=== PATIENT | female | born 1990 | race Caucasian/White ===

== ENCOUNTER 2017-05-03 19:46 | Observation (INO) ==
[2017-05-03 20:16] LABS: Basophils % 0.3 %; Eosinophils # 0.1 K/mcL (0.0-0.6); Eosinophils % 0.6 %; Hematocrit 36.6 % (35.3-44.9); Hemoglobin 12.2 g/dL (11.5-15.4); Immature Granulocytes % 0.2 % (0-4); Lymphocytes # 1.2 K/mcL (0.6-4.6); Lymphocytes % 12.8 %; Mean Corpuscular HGB Conc 33.3 g/dL (31.6-35.5); Mean Corpuscular Hemoglobin 30.6 pg (28.0-33.3); Mean Corpuscular Volume 91.7 fL (83.0-100.0); Mean Platelet Volume 9.3 fL (9.4-12.4); Monocytes # 0.9 K/mcL (0.0-1.3); Monocytes % 9.7 %; Neutrophils # 7.1 K/mcL (1.6-8.9); Platelet Count 231 K/mcL (140-400); Red Blood Count 3.99 M/mcL (3.82-4.97); Red Cell Distribution Width 12.3 % (11.5-14.5); Segmented Neutrophils % 76.4 %
--- NOTE | 2017-05-03 20:18 | Emergency Department Note ---
Disposition Clinical Impression: Suicidal ideation, Opioid withdrawal, Benzodiazepine abuse Disposition: Admitted As Inpatient Condition: Good General Adult HPI - General Chief complaint: ED Psychiatric Symptoms Stated complaint: si Time Seen by Provider: 05/03/17 20:02 Source: patient Limitations: no limitations Nursing Notes Reviewed: Yes Vital Signs Reviewed: Yes - History of Present Illness HPI Narrative: 18-year-old female who does emergency department after stating that she wants to kill herself. Patient's had A History of Depression, Suicidal Ideations. Patient States That She Would Take a Car and Driving off the Road and Racket. Patient Was Recently Prescribed 90 Tablets of 1 Mg Clonazepam. Patient States That Her Last Ingestion Was Approximately 12 Hours Ago. Patient States That She Has Been in Withdrawal Seizures before. Pain Scale: 8 - Related Data Home Medications Medication Instructions Recorded Confirmed Topiramate [Topamax] 50 mg PO BID 04/24/16 04/24/16 Previous Rx's Medication Instructions Recorded Ibuprofen [Motrin] 600 mg PO Q6HR PRN #10 tab 05/27/15 Escitalopram [Lexapro] 20 mg PO DAILY #60 tablet 04/26/16 TraZODone 50 mg PO HS PRN #30 tablet 04/26/16 hydrOXYzine pamoate [HydrOXYzine 50 mg PO TID PRN #180 capsule 04/26/16 Pamoate] Acyclovir [Zovirax] 400 mg PO TID 10 Days tablet 06/11/16 HYDROcodone/Acet 5/325 mg [[place] 1 tab PO Q6H PRN #10 tab 06/11/16 5-325 mg] Lidocaine HCl [Lidocaine HCl 3 - 4 ml MM Q2-3H PRN #100 ml 06/11/16 Viscous] HYDROcodone/Acet 5/325 mg [[place] 1 tab PO Q4H PRN #6 tab 06/17/16 5-325 mg] HYDROcodone/Acet 5/325 mg [[place] 1 tab PO Q6H PRN #4 tab 06/21/16 5-325 mg] Ibuprofen [Motrin] 600 mg PO Q8HR PRN #15 tab 06/21/16 Ibuprofen [Motrin] 600 mg PO Q6HR PRN #24 tab 11/17/16 cephALEXin [Cephalexin] 500 mg PO BID #14 tablet 11/20/16 Albuterol Sulfate [Albuterol 2 puff IH Q4HR #1 hfa.aer.ad 02/07/17 Inhaler] Fluticasone Propionate Nasal 50 mcg NS DAILY #1 bottle 02/07/17 [Flonase] Loratadine [Allergy Relief] 10 mg PO DAILY #30 tablet 02/07/17 Ondansetron [Zofran] 4 mg PO Q8HR #9 tablet 02/07/17 Allergies Allergy/AdvReac Type Severity Reaction Status Date / Time Penicillins Allergy Hives Verified 03/17/17 07:05 All systems ED: reviewed and negative except as stated. Review of Systems: As Per HPI Constitutional: Denies: fever Cardiovascular: Denies: chest pain Respiratory: Denies: cough, dyspnea, wheezes Gastrointestinal: Denies: abdominal pain, nausea, vomiting Genitourinary: Denies: urgency, dysuria, frequency Musculoskeletal: Denies: back pain Integumentary: Denies: rash Past Medical History - Past Medical History Medical history: Reports: migraine, seizures Surgical history: Reports: cholecystectomy Psychiatric history: Reports: anxiety, depression, previous psychiatric hospitalization [employer] history: Reports: bilateral tubal ligation - Social History Smoking Status: Current every day smoker Smokeless Tobacco Status: No Alcohol use: Reports: occasionally Drug use: Reports: opiates, methamphetamine, other Physical Exam CONSTITUTIONAL: Alert and oriented X3, agitated 26-year-old female HEAD: Normocephalic; atraumatic. EYES: PERRL, no scleral icterus. NOSE: The nose is normal in appearance without rhinorrhea RESP: Normal chest excursion with respiration; breath sounds clear and equal bilaterally; no wheezes, rhonchi, or rales CARD: Regular rhythm, without murmurs, rub or gallop ABD: Non-distended; non-tender, soft,without rigidity, rebound or guarding SKIN: Normal for age and race; warm and dry; no apparent lesions - General Limitations: no limitations General appearance: alert, in no apparent distress Course Vital Signs Temperature 98.5 F 05/03/17 19:53 Pulse Rate 120 05/03/17 19:53 Respiratory Rate 18 05/03/17 19:53 Blood Pressure 102/70 05/03/17 19:53 O2 Sat by Pulse Oximetry 99 05/03/17 19:53 Temperature 98.5 F 05/03/17 19:53 Pulse Rate 77 05/04/17 03:31 Respiratory Rate 14 05/04/17 04:40 Blood Pressure 112/66 05/04/17 03:31 O2 Sat by Pulse Oximetry 99 05/04/17 04:40 Oxygen Delivery Oxygen Delivery Room Air Medical Decision Making - MDM Narrative Medical decision making narrative: 26-year-old female presents to emergency department with concern for suicidal ideations. Patient states that she wants to get in a car and crashed. There was some concern as patient has admitted to take and 91 mg Klonopin in the last 48 hours. clean room technician verified that the patient did get a prescription of Klonopin filled recently. Patient, however, does not show any signs of respiratory depression. Patient is also concern for opiate withdrawal as she was agitated on physical exam and was mildly tachycardic. Patient was given clonidine in the emergency department to assist with that. Urinalysis did not reveal any evidence of infection. Urine drug screen revealed evidence of opiates, benzodiazepines, marijuana. CBC did not reveal any evidence of leukocytosis. Patient was pink slipped and placed on suicide precautions as well as seizure precautions. Patient was evaluated by [facility] and felt that she needed a admission to the hospital to initially manage her symptoms of withdrawal. I spoke with the hospitalist about admission of this patient. He agrees that the patient for admission. Patient is hemodynamically stable at time of admission to the hospital. Vital Signs Temperature 98.5 F 05/03/17 19:53 Pulse Rate 120 05/03/17 19:53 Respiratory Rate 18 05/03/17 19:53 Blood Pressure 102/70 05/03/17 19:53 O2 Sat by Pulse Oximetry 99 05/03/17 19:53 Temperature 98.5 F 05/03/17 19:53 Pulse Rate 77 05/04/17 03:31 Respiratory Rate 14 05/04/17 04:40 Blood Pressure 112/66 05/04/17 03:31 O2 Sat by Pulse Oximetry 99 05/04/17 04:40 Oxygen Delivery Oxygen Delivery Room Air - Lab Data Result diagrams: 05/03/17 20:10 05/03/17 20:10 Lab Results 05/03/17 05/03/17 05/03/17 Range/Units 20:10 20:10 20:13 WBC 9.4 (4.3-11.1) K/mcL RBC 3.99 (3.82-4.97) M/mcL Hgb 12.2 (11.5-15.4) g/dL Hct 36.6 (35.3-44.9) % MCV 91.7 (83.0-100.0) fL MCH 30.6 (28.0-33.3) pg MCHC 33.3 (31.6-35.5) g/dL RDW 12.3 (11.5-14.5) % Plt Count 231 (140-400) K/mcL MPV 9.3 L (9.4-12.4) fL Immature Gran % 0.2 (0-4) % Seg Neutrophils % 76.4 % Lymphocytes % 12.8 % Monocytes % 9.7 % Eosinophils % 0.6 % Basophils % 0.3 % Neutrophils # 7.1 (1.6-8.9) K/mcL Lymphocytes # 1.2 (0.6-4.6) K/mcL Monocytes # 0.9 (0.0-1.3) K/mcL Eosinophils # 0.1 (0.0-0.6) K/mcL Basophils # 0.0 (0.0-0.2) K/mcL Sodium 140 (136-145) mEq/L Potassium 3.2 L (3.5-4.5) mEq/L Chloride 109 (98-109) mEq/L Carbon Dioxide 17 L (19-29) mEq/L BUN 15 (7-20) mg/dL Creatinine 0.71 (0.57-1.11) mg/dL Est GFR ( Amer) > 60 (> 60) Est GFR (Non-Af Amer) > 60 (> 60) BUN/Creatinine Ratio 21 (6-26) Glucose 62 L (70-99) mg/dL Calculated Osmolality 289 (280-300) Calcium 8.9 (8.6-10.8) mg/dL Urine Color Dark Yellow (Yellow) Urine Clarity Clear (Clear) Urine pH 6.0 (5.0-8.0) pH Units Ur Specific [place] 1.028 H (1.010-1.025) Urine Protein Negative (Neg-Trace) mg/dL Urine Glucose (UA) Normal (Normal) mg/dL Urine Ketones Negative (Negative) mg/dL Urine Blood Trace H (Negative) Urine Nitrite Negative (Negative) Urine Bilirubin Small H (Negative) Urine Urobilinogen Normal (Normal) mg/dL Ur Leukocyte Esterase Negative (Negative) Urine Microscopic RBC 5-15 H (0-3) per hpf Urine Microscopic WBC 5-15 H (0-3) per hpf Ur Squamous Epith Cells Many H (None-Few) per lpf Urine Bacteria None Seen (None-Few) per hpf Hyaline Casts None Seen (None-Few) per lpf Urine Test (Negative) Salicylates < 5.0 L (15-30) mg/dL Urine Opiates Screen (Mvxhdg=417) ng/mL Acetaminophen < 1.0 L (10-30) mcg/mL Ur Barbiturates Screen (Cmmhad=334) ng/mL Ur Phencyclidine Scrn (Cutoff=25) ng/mL Ur Amphetamines Screen (Kutlnw=8299) ng/mL U Benzodiazepines Scrn (Exrxpi=665) ng/mL Urine Cocaine Screen (Cutoff= 300) ng/mL U Marijuana (THC) Screen (Cutoff = 50) ng/mL Ethyl Alcohol < 10 (0-10) mg/dL 05/03/17 05/03/17 Range/Units 20:13 20:13 WBC (4.3-11.1) K/mcL RBC (3.82-4.97) M/mcL Hgb (11.5-15.4) g/dL Hct (35.3-44.9) % MCV (83.0-100.0) fL MCH (28.0-33.3) pg MCHC (31.6-35.5) g/dL RDW (11.5-14.5) % Plt Count (140-400) K/mcL MPV (9.4-12.4) fL Immature Gran % (0-4) % Seg Neutrophils % % Lymphocytes % % Monocytes % % Eosinophils % % Basophils % % Neutrophils # (1.6-8.9) K/mcL Lymphocytes # (0.6-4.6) K/mcL Monocytes # (0.0-1.3) K/mcL Eosinophils # (0.0-0.6) K/mcL Basophils # (0.0-0.2) K/mcL Sodium (136-145) mEq/L Potassium (3.5-4.5) mEq/L Chloride (98-109) mEq/L Carbon Dioxide (19-29) mEq/L BUN (7-20) mg/dL Creatinine (0.57-1.11) mg/dL Est GFR ( Amer) (> 60) Est GFR (Non-Af Amer) (> 60) BUN/Creatinine Ratio (6-26) Glucose (70-99) mg/dL Calculated Osmolality (280-300) Calcium (8.6-10.8) mg/dL Urine Color (Yellow) Urine Clarity (Clear) Urine pH (5.0-8.0) pH Units Ur Specific [place] (1.010-1.025) Urine Protein (Neg-Trace) mg/dL Urine Glucose (UA) (Normal) mg/dL Urine Ketones (Negative) mg/dL Urine Blood (Negative) Urine Nitrite (Negative) Urine Bilirubin (Negative) Urine Urobilinogen (Normal) mg/dL Ur Leukocyte Esterase (Negative) Urine Microscopic RBC (0-3) per hpf Urine Microscopic WBC (0-3) per hpf Ur Squamous Epith Cells (None-Few) per lpf Urine Bacteria (None-Few) per hpf Hyaline Casts (None-Few) per lpf Urine Test Negative (Negative) Salicylates (15-30) mg/dL Urine Opiates Screen Positive H (Adfuvg=139) ng/mL Acetaminophen (10-30) mcg/mL Ur Barbiturates Screen Negative (Wbwgsv=796) ng/mL Ur Phencyclidine Scrn Negative (Cutoff=25) ng/mL Ur Amphetamines Screen Negative (Bkppxp=2907) ng/mL U Benzodiazepines Scrn Positive H (Ridefs=863) ng/mL Urine Cocaine Screen Negative (Cutoff= 300) ng/mL U Marijuana (THC) Screen Positive H (Cutoff = 50) ng/mL Ethyl Alcohol (0-10) mg/dL Attestation Statement - Attestation Attestation: I, Ricardo Chowdary MD, personally evaluated this patient and discussed their management with the resident physician. I reviewed the resident's note and agree with the documented findings, medical decision making, and plan of care. 26-year-old female presents to the emergency department complaining of suicidal ideation. Patient has a long history of heroin abuse and states that she is trying to get off the heroin. She has not had any heroin in 2-1/2 days. She complains that she has burning all over and anxious and itchy. Needs something for the heroin withdrawal. She also admits to taking about 90 Klonopin tablets , 1 mg each, yesterday and last evening. She has had none all day today. On examination patient is a well-developed well-nourished female who is alert and cooperative but is very anxious. She is alert and oriented 3. There is no cyanosis or diaphoresis. Chest is nontender to palpation. Breath sounds are clear and equal bilaterally. Heart regular with a mild tachycardia. Abdomen is soft and nontender with normal bowel sounds. No gross focal neurological deficits. Labs reviewed. Patient was evaluated by the [facility] service and the psychiatrist recommended medical admission for acute overdose and for opiate withdrawal. The hospitalist, Dr. Damon, was consulted and accepted admission of the patient.
[2017-05-03 20:24] LABS: Bilirubin,Urine Small (Negative); Blood,Urine Trace (Negative); Clarity,Urine Clear (Clear); Color,Urine Dark Yellow (Yellow); Glucose,Urine (UA) Normal (Normal); Ketones,Urine Negative (Negative); Leukocyte Esterase,Urine Negative (Negative); Nitrite,Urine Negative (Negative); Protein,Urine Negative (Neg-Trace); Specific Gravity,Urine 1.028 (1.010-1.025); Urobilinogen,Urine Normal (Normal)
[2017-05-03 20:26] LABS: Bacteria,Urine None Seen per hpf (None-Few); Hyaline Casts,Urine None Seen per lpf (None-Few); Squamous Epithelial Cell,Urine Many per lpf (None-Few)
[2017-05-03 20:27] LABS: Amphetamine Screen,Urine Negative ng/mL (Cutoff=1000); Barbiturate Screen,Urine Negative ng/mL (Cutoff=200); Benzodiazepines Screen,Urine Positive ng/mL (Cutoff=200); Cannabinoid Screen,Urine Positive ng/mL (Cutoff = 50); Cocaine Screen,Urine Negative ng/mL (Cutoff= 300); Opiate Screen,Urine Positive ng/mL (Cutoff=300); Phencyclidine Screen,Urine Negative ng/mL (Cutoff=25)
[2017-05-03 20:32] LABS: Acetaminophen < 1.0 mcg/mL (10-30); BUN/Creatinine Ratio 21 (6-26); Blood Urea Nitrogen 15 mg/dL (7-20); Calcium 8.9 mg/dL (8.6-10.8); Carbon Dioxide 17 mEq/L (19-29); Chloride 109 mEq/L (98-109); Ethanol < 10 mg/dL (0-10); Glucose 62 mg/dL (70-99); Osmolality,Calculated 289 (280-300); Potassium 3.2 mEq/L (3.5-4.5); Salicylate < 5.0 mg/dL (15-30); Sodium 140 mEq/L (136-145); eGFR For African Americans > 60 (> 60); eGFR For Non-African Americans > 60 (> 60)
[2017-05-03] MEDS ORDERED: cloNIDine HCl 0.1 MG TABLET PO ONE (20:34)
[2017-05-03] MEDS ORDERED: *HR* LORazepam 1 MG TABLET PO ONE (23:21)
[2017-05-04] MEDS ORDERED: Naloxone 0.4 MG/ML INJ IVP PRN (03:16)
[2017-05-04] MEDS ORDERED: Ondansetron 4 MG/2 ML VIAL IVP PRN (03:16)
[2017-05-04] MEDS ORDERED: Mag Hydrox/Al Hydrox/Simeth 30 ML UDC PO PRN (03:16)
--- NOTE | 2017-05-04 03:25 | Internal Med History&Physical ---
Date of Encounter: 05/04/17 Time of Encounter: 03:23 Assessment and Plan (1) Suicidal ideation Current visit: Yes Status: Acute Presented with suicidal ideation. She will be on hold for the night on telemetry to see if she develops any side effects. IV fluid was started. Psychiatric he can be consulted in the morning the morning team. (2) Drug overdose Current visit: Yes Status: Acute She overdosed with benzodiazepines. Urine toxicity screen also showed some marijuana. She has history of alcoholism 2. Qualifiers: Encounter type: initial encounter Injury intent: intentional self-harm Qualified Code(s): T50.902A - Poisoning by unspecified drugs, medicaments and biological substances, intentional self-harm, initial encounter (3) Alcohol dependence Current visit: Yes Status: Acute As above Qualifiers: Substance use status: uncomplicated Qualified Code(s): F10.20 - Alcohol dependence, uncomplicated (4) Depression Current visit: No Status: Acute As above Qualifiers: Depression Type: unspecified Qualified Code(s): F32.9 - Major depressive disorder, single episode, unspecified (5) Major depressive disorder, recurrent Current visit: No Status: Acute Qualifiers: Active/Remission status: currently active Major depression episode severity : moderate Qualified Code(s): F33.1 - Major depressive disorder, recurrent, moderate (6) Opiate dependence Current visit: No Status: Acute Qualifiers: Substance use status: in withdrawal Qualified Code(s): F11.23 - Opioid dependence with withdrawal (7) UTI (urinary tract infection) Current visit: Yes Status: Acute IV Rocephin and started cultures to follow Qualifiers: Urinary tract infection type: site unspecified Hematuria presence: without hematuria Qualified Code(s): N39.0 - Urinary tract infection, site not specified (8) Hypokalemia Current visit: Yes Status: Acute Potassium given BMP to be rechecked Internal Medicine - H&P: HPI Chief complaint: Suicidal ideation and drug overdose History of present illness: Ms. Dale is a 26 year old female has history of drug and alcohol dependence and abuse. She came in after it was noted that she took several Klonopin. Apparently she was prescribed 90 pills. According to ER she was brought in for suicidal ideation however patient told me that she was just trying to get high. She did not take any alcohol but she her urine shows some marijuana. Right now she is quite somnolent and I am not sure if this is under the influence of medicine this is just the late hour and the evening. In any case she needs to be watched on monitor to see if she develops any anticholinergic effects. I could not get any further information from her except that she says no to all questions. Past Med Surg Social Fam HX - Past Medical History Medical history: migraine, seizures Psychiatric history: anxiety, bipolar, depression, previous psychiatric hospitalization - Past Surgical History Surgical History: cholecystectomy - Social History Smoking Status: Current every day smoker Smokeless Tobacco Status: No Alcohol use: occasionally Drug use: opiates, methamphetamine, other Internal Medicine - H&P: Meds Ibuprofen [Motrin] 600 mg PO Q6HR PRN #10 tab 05/27/15 [Rx] Topiramate [Topamax] 50 mg PO BID 04/24/16 [History] Escitalopram [Lexapro] 20 mg PO DAILY #60 tablet 04/26/16 [Rx] TraZODone 50 mg PO HS PRN #30 tablet 04/26/16 [Rx] hydrOXYzine pamoate [HydrOXYzine Pamoate] 50 mg PO TID PRN #180 capsule [Rx] Acyclovir [Zovirax] 400 mg PO TID 10 Days tablet 06/11/16 [Rx] HYDROcodone/Acet 5/325 mg [[place] 5-325 mg] 1 tab PO Q6H PRN #10 tab 06/11/16 [Rx ] Lidocaine HCl [Lidocaine HCl Viscous] 3 - 4 ml MM Q2-3H PRN #100 ml 06/11/16 [Rx ] HYDROcodone/Acet 5/325 mg [[place] 5-325 mg] 1 tab PO Q4H PRN #6 tab 06/17/16 [Rx] HYDROcodone/Acet 5/325 mg [[place] 5-325 mg] 1 tab PO Q6H PRN #4 tab 06/21/16 [Rx] Ibuprofen [Motrin] 600 mg PO Q8HR PRN #15 tab 06/21/16 [Rx] Ibuprofen [Motrin] 600 mg PO Q6HR PRN #24 tab 11/17/16 [Rx] cephALEXin [Cephalexin] 500 mg PO BID #14 tablet 11/20/16 [Rx] Albuterol Sulfate [Albuterol Inhaler] 2 puff IH Q4HR #1 hfa.aer.ad 02/07/17 [Rx] Fluticasone Propionate Nasal [Flonase] 50 mcg NS DAILY #1 bottle 02/07/17 [Rx] Loratadine [Allergy Relief] 10 mg PO DAILY #30 tablet 02/07/17 [Rx] Ondansetron [Zofran] 4 mg PO Q8HR #9 tablet 02/07/17 [Rx] 3 Allergy/AdvReac Type Severity Reaction Status Date / Time Penicillins Allergy Hives Verified 03/17/17 07:05 All Systems PM: A 10-system review of systems was performed and is negative for pertinent findings except as documented above in the HPI. - Constitutional Constitutional: no chills, no fever(s), no night sweats - EENT Eyes: no change in vision, no discharge, no pain, no photophobia Ears: no ear discharge, no ear pain, no tinnitus Nose, mouth and throat: no dysphagia, no nasal discharge, no neck pain, no sore throat - Cardiovascular Cardiovascular ROS IM: no chest pain, no diaphoresis, no dyspnea, no lightheadedness, no palpitations, no syncope - Respiratory Respiratory: no cough, no dyspnea, no wheezing, no excessive phlegm production - Gastrointestinal Gastrointestinal: no abdominal pain, no diarrhea, no hematemesis, no hematochezia, no melena, no nausea, no vomiting - Genitourinary Genitourinary: no change in urinary stream, no dysuria, no flank pain, no hematuria - Musculoskeletal Musculoskeletal ROS IM: no numbness, no tingling - Integumentary Integumentary IM: no rash, no unusual bruising - Neurological Neurological ROS: no confusion, no convulsions, no focal weakness, no numbness, no tingling, no tremor(s) - Hematologic/Lymphatic Hematologic/Lymphatic: no easy bruising - Constitutional Vitals: Temp Pulse Resp BP Pulse Ox 98.5 F 59 16 133/86 98 05/03/17 19:53 05/04/17 01:49 05/04/17 01:49 05/04/17 01:49 05/04/17 01:49 General appearance: Present: A&O X 3, answers questions appropriately - Head Head exam: Present: atraumatic, normocephalic - Eye Eye exam: Present: PERRL, conjuntiva pink, sclera anicteric Pupils: Present: PERRL - Neck Neck exam general surgery: Present: supple, trachea midline. Absent: lymphadenopathy - Respiratory Respiratory exam: Present: CTAB. Absent: accessory muscle use, rales, rhonchi, wheezes - Cardiovascular Cardiovascular exam: Present: RRR, +S1, +S2. Absent: diastolic murmur, gallop, rubs, systolic murmur - GI/Abdominal GI/Abdominal exam: Present: normal bowel sounds, soft, no peritoneal signs. Absent: distended, tenderness - Extremities Exam Extremities exam: Present: warm, radial pulses palpable and symmetrical. Absent : calf tenderness, cyanotic, pedal edema - Neurological Exam Neurological exam: Present: CN II-XII intact, oriented X3, no focal deficits. Absent: pronater drift, facial droop, speech deficit - Skin Skin exam: Present: dry, intact Internal Med - H&P Results - Labs CBC & Chem 7: 05/03/17 20:10 05/03/17 20:10
[2017-05-04] MEDS: 0.9 % Sodium Chloride 1,000 ML IVC SCH ×2 (04:58→11:36)
[2017-05-04] MEDS: cefTRIAXone 1,000 MG in Water for inj. (sterile) 10 ML IVP SCH (04:58)
[2017-05-04 05:27] LABS: BUN/Creatinine Ratio 17 (6-26); Blood Urea Nitrogen 10 mg/dL (7-20); Calcium 8.3 mg/dL (8.6-10.8); Carbon Dioxide 18 mEq/L (19-29); Chloride 110 mEq/L (98-109); Glucose 92 mg/dL (70-99); Osmolality,Calculated 289 (280-300); Sodium 140 mEq/L (136-145); eGFR For African Americans > 60 (> 60); eGFR For Non-African Americans > 60 (> 60)
[2017-05-04] MEDS: Fluticasone Propionate Nasal 50 MCG/SPRAY BOTTLE NS SCH (08:49)
[2017-05-04] MEDS: Topiramate 25 MG TABLET PO SCH ×2 (08:49→20:33)
[2017-05-04] MEDS: Acetaminophen 325 MG TABLET PO PRN (11:35)
[2017-05-04] MEDS: Ondansetron 4 MG/2 ML VIAL IVP PRN ×2 (13:25→20:34)
--- NOTE | 2017-05-04 14:38 | Consult Note ---
Date of Encounter: 05/04/17 Time of Encounter: 13:30 Assessment & Recommendation (1) Suicidal ideation Current visit: Yes Status: Acute Assessment & Recommendation: continue sitter , close monitoring. (2) Bipolar disorder, unspecified Current visit: Yes Assessment & Recommendation: will start neurontin and continue lexapro. Qualifiers: Active/Remission status: currently active Current bipolar episode type: depressed Current episode severity: moderate Qualified Code(s): F31.32 - Bipolar disorder, current episode depressed, moderate (3) Polysubstance (excluding opioids) dependence Current visit: Yes Status: Acute (4) Opiate dependence Current visit: No Status: Acute Qualifiers: Substance use status: in withdrawal Qualified Code(s): F11.23 - Opioid dependence with withdrawal History of Present Illness Patient: new to practice Requesting Physician: Jennifer Mcclain CNP Reason for consult: suicidal ideation, OD , Depression. History of present illness: Ms. Dale is a 26 year old female was consulted today for OD,Suicidal Ideation and depression. Patient has h/o poly substance use and depression , bipolar , seizure disorder and on medications given by PCP. She was admitted from ED where she bought herself, she had taken klonopin and heroin and marijuana , she was somnolent and admitted to medical floor. CC: I messed everything up , i am screw up, i did not od ON MEDICINE. pATIENT ABLE TO GIVE HISTORY BUT VERY RESTLESS, ANXIOUS , TEARFUL, SHE STATES HAS BEEN DX WITH BIPOLAR , HAS BEEN USING HEROIN 8 yrs off and on , last used 2 times iv yesterday , and takes oxycodone now and then , used her klonopin 90 pills in 2-3 days states they do not do anything to me , having suicidal thoughts about crashing her car , she is c/o hearing voices calling her name also c/o bugs crawling on her skin. she states had 4 seizures in 04/13 when in detox at [facility] , she left AMA after being in rehab for 6 weeks. she has h/o cutting self and still cuts self , has not done it lately. she has mood swings, depress, suicidal , a/v hallucinations, and increased intake of benzo, tox positive for drugs. REC: Patient is apparently withdrawing from benzo and heroin , also has h/o seizures. Her vitals were stable in AM , need to monitor for withdraw She needs to be on withdrawl protocol , also neurontin 300 mg tid, continue lexapro 20 mg, she still has suicidal ideation needs to continue sitter for safety as very impulsive. once she is medically cleared then will reevaluate her for psych in patient. Thank you for consult. CC: Jennifer Mcclain, REYNA Past Med Surg Social Fam HX - Past Medical History Medical history: migraine, seizures - Past Psychiatric History Psychiatric history: Reports: anxiety, bipolar, depression, panic disorder, prior suicide attempt, previous psychiatric hospitalization Family psychiatric history: Yes Family History of Suicide: Attempted - Past Surgical History Surgical History: cholecystectomy - Social History Smoking Status: Current every day smoker Smokeless Tobacco Status: No Alcohol use: occasionally Drug use: opiates, methamphetamine, other Medications & Allergies Topiramate [Topamax] 100 mg PO BID 04/24/16 [History] Escitalopram [Lexapro] 10 mg PO DAILY 05/04/17 [History] TraZODone 100 mg PO HS PRN 05/04/17 [History] clonazePAM [Klonopin] 1 mg PO TID 05/04/17 [History] 3 Allergy/AdvReac Type Severity Reaction Status Date / Time Penicillins Allergy Hives Verified 03/17/17 07:05 Review of Systems Psychiatric: Reports: depression, anxiety, abnormal sleep pattern, suicidal ideation, difficulty concentrating, hopelessness, mood swings, panic attacks Mental Status Exam Patient orientation: Yes Person, Yes Time, Yes Place Level of alertness: Alert Patient appearance: Unkempt Behavior: nervous, anxious, impulsive Psychomotor activity: Increased Eye contact: Minimal Contact Mood description: Depressed, Anxious, Irritable Affect description: tearful, anxious Speech pattern: Excessive Speech volume: Normal Thought process: Racing Thought content: Yes Suicidal ideation Perceptual disturbances: Yes Auditory hallucinations Attention span: Unable to Sustain Attention Patient reliability: Questionable Historian Intelligence estimate: Average Judgment: Limited Insight: Partial Results - Vital Signs Vital signs: Temp Pulse Resp BP Pulse Ox 97.8 F 86 16 102/56 97 05/04/17 08:12 05/04/17 08:12 05/04/17 08:12 05/04/17 08:12 05/04/17 08:12 - Labs Labs: Laboratory Last Values WBC 9.4 K/mcL (4.3-11.1) 05/03/17 20:10 RBC 3.99 M/mcL (3.82-4.97) 05/03/17 20:10 Hgb 12.2 g/dL (11.5-15.4) 05/03/17 20:10 Hct 36.6 % (35.3-44.9) 05/03/17 20:10 MCV 91.7 fL (83.0-100.0) 05/03/17 20:10 MCH 30.6 pg (28.0-33.3) 05/03/17 20:10 MCHC 33.3 g/dL (31.6-35.5) 05/03/17 20:10 RDW 12.3 % (11.5-14.5) 05/03/17 20:10 Plt Count 231 K/mcL (140-400) 05/03/17 20:10 MPV 9.3 fL (9.4-12.4) L 05/03/17 20:10 Immature Gran % 0.2 % (0-4) 05/03/17 20:10 Seg Neutrophils % 76.4 % 05/03/17 20:10 Lymphocytes % 12.8 % 05/03/17 20:10 Monocytes % 9.7 % 05/03/17 20:10 Eosinophils % 0.6 % 05/03/17 20:10 Basophils % 0.3 % 05/03/17 20:10 Neutrophils # 7.1 K/mcL (1.6-8.9) 05/03/17 20:10 Lymphocytes # 1.2 K/mcL (0.6-4.6) 05/03/17 20:10 Monocytes # 0.9 K/mcL (0.0-1.3) 05/03/17 20:10 Eosinophils # 0.1 K/mcL (0.0-0.6) 05/03/17 20:10 Basophils # 0.0 K/mcL (0.0-0.2) 05/03/17 20:10 Sodium 140 mEq/L (136-145) 05/04/17 04:33 Potassium 3.0 mEq/L (3.5-4.5) L 05/04/17 04:33 Chloride 110 mEq/L (98-109) H 05/04/17 04:33 Carbon Dioxide 18 mEq/L (19-29) L 05/04/17 04:33 BUN 10 mg/dL (7-20) 05/04/17 04:33 Creatinine 0.59 mg/dL (0.57-1.11) 05/04/17 04:33 Est GFR ( Amer) > 60 (> 60) 05/04/17 04:33 Est GFR (Non-Af Amer) > 60 (> 60) 05/04/17 04:33 BUN/Creatinine Ratio 17 (6-26) 05/04/17 04:33 Glucose 92 mg/dL (70-99) 05/04/17 04:33 Calculated Osmolality 289 (280-300) 05/04/17 04:33 Calcium 8.3 mg/dL (8.6-10.8) L 05/04/17 04:33 Urine Color Dark Yellow (Yellow) 05/03/17 20:13 Urine Clarity Clear (Clear) 05/03/17 20:13 Urine pH 6.0 pH Units (5.0-8.0) 05/03/17 20:13 Ur Specific [place] 1.028 (1.010-1.025) H 05/03/17 20:13 Urine Protein Negative mg/dL (Neg-Trace) 05/03/17 20:13 Urine Glucose (UA) Normal mg/dL (Normal) 05/03/17 20:13 Urine Ketones Negative mg/dL (Negative) 05/03/17 20:13 Urine Blood Trace (Negative) H 05/03/17 20:13 Urine Nitrite Negative (Negative) 05/03/17 20:13 Urine Bilirubin Small (Negative) H 05/03/17 20:13 Urine Urobilinogen Normal mg/dL (Normal) 05/03/17 20:13 Ur Leukocyte Esterase Negative (Negative) 05/03/17 20:13 Urine Microscopic RBC 5-15 per hpf (0-3) H 05/03/17 20:13 Urine Microscopic WBC 5-15 per hpf (0-3) H 05/03/17 20:13 Ur Squamous Epith Cells Many per lpf (None-Few) H 05/03/17 20:13 Urine Bacteria None Seen per hpf (None-Few) 05/03/17 20:13 Hyaline Casts None Seen per lpf (None-Few) 05/03/17 20:13 Urine Test Negative (Negative) 05/03/17 20:13 Salicylates < 5.0 mg/dL (15-30) L 05/03/17 20:10 Urine Opiates Screen Positive ng/mL (Xrtutm=527) H 05/03/17 20:13 Acetaminophen < 1.0 mcg/mL (10-30) L 05/03/17 20:10 Ur Barbiturates Screen Negative ng/mL (Fjtaet=379) 05/03/17 20:13 Ur Phencyclidine Scrn Negative ng/mL (Cutoff=25) 05/03/17 20:13 Ur Amphetamines Screen Negative ng/mL (Fidjlh=0134) 05/03/17 20:13 U Benzodiazepines Scrn Positive ng/mL (Fsrqio=781) H 05/03/17 20:13 Urine Cocaine Screen Negative ng/mL (Cutoff= 300) 05/03/17 20:13 U Marijuana (THC) Screen Positive ng/mL (Cutoff = 50) H 05/03/17 20:13 Ethyl Alcohol < 10 mg/dL (0-10) 05/03/17 20:10 Consult Discharge Plan - Plan Referrals: NONE,PCP [Primary Care Provider] -
[2017-05-04] MEDS: *HR* LORazepam 2 MG/ML VIAL IVP PRN ×2 (15:04→20:36)
[2017-05-04] MEDS: Thiamine (B-1) 100 MG TABLET PO SCH (15:05)
[2017-05-04] MEDS: Vitamin B Complex/Vit C/Vit E 1 EACH TABLET PO SCH (15:05)
[2017-05-04] MEDS: Folic Acid 1 MG TABLET PO SCH (15:05)
[2017-05-04] MEDS: Nicotine 21 MG PATCH.TD24 TD SCH (17:39)
[2017-05-04] MEDS: Thiamine (B-1) 100 MG, Folic Acid 1 MG, MVI, adult with vitamin K 10 ML in 0.9 % Sodi... IVPB SCH (17:46)
--- NOTE | 2017-05-04 18:57 | Internal Med Progress Note ---
Date of Encounter: 05/04/17 Time of Encounter: 08:40 - Assessment and plan (1) Suicidal ideation Current Visit: Yes Status: Acute Assessment and plan: During exam, patient stated that she was suicidal. She has no plan. Sitters at bedside. Patient is pink slipped. After she is medically cleared, she will be reevaluated by psychiatry for placement in an inpatient unit. (2) Depression Current Visit: Yes Status: Chronic Assessment and plan: Continue home medications. Qualifiers: Depression Type: unspecified Qualified Code(s): F32.9 - Major depressive disorder, single episode, unspecified (3) Drug abuse Current Visit: Yes Status: Chronic Assessment and plan: Patient reports chronic heroin use, depending on who she is talking to his anywhere from 6-8 years of use. Patient reports to me that she has not used heroin 3 days, she tells psychiatry that she used IV heroin twice yesterday. oarrs report indicates that she has been getting Klonopin regularly, sometimes at smaller doses, most recently 90 pills which she used overdose this visit. She also received some [place] from a dentist recently. I spoke with provider who provides her Klonopin. Approximately a month ago she called the office and stated she dropped off her Klonopin in her front yard and was requesting a refill. Patient also reports being dependent on alcohol. She reports drinking daily. She drinks [employer] ice teas that are purchased at a local [employer]. She tells me last drink was 3 days ago. She requested CIWA protocol and was verbally aggressive/abusive with staff and me regarding implementation of this protocol. I have been approached multiple times by patient's primary nurses today requesting Phenergan, pain medication, increased Ativan. Continue CIWA protocol. Continue to monitor, wean as soon as possible. Patient to potentially be placed in inpatient psychiatric unit after medically cleared. (4) Major depressive disorder, recurrent Current Visit: Yes Status: Chronic Qualifiers: Active/Remission status: currently active Major depression episode severity : moderate Qualified Code(s): F33.1 - Major depressive disorder, recurrent, moderate (5) Anxiety Current Visit: Yes Status: Chronic (6) Opiate dependence Current Visit: Yes Status: Chronic Qualifiers: Substance use status: in withdrawal Qualified Code(s): F11.23 - Opioid dependence with withdrawal (7) Alcohol dependence Current Visit: Yes Status: Chronic Assessment and plan: Patient reports drinking alcohol daily. She says that she drinks [place] ice teas that she purchases at a local gas station. [place] protocol in place. Continue to monitor. Qualifiers: Substance use status: uncomplicated Qualified Code(s): F10.20 - Alcohol dependence, uncomplicated (8) Benzodiazepine dependence Current Visit: Yes Status: Chronic (9) Hypokalemia Current Visit: Yes Status: Acute Assessment and plan: Continue to monitor labs in the morning. She received supplementation. - Subjective Interval history: Patient was seen and assessed at bedside 840. She is alert, awake, appears to be agitated. She tells me that she has not used heroin or Klonopin for 3 days. She did not discuss any alcohol use with me whatsoever. She states that she needs Ativan for her withdrawal. Patient shows no tremor she appears to be calm , her skin was pink warm and dry. She was not clammy, she was not having nausea or vomiting or tremors. Today there have been multiple requests by nursing for pain medication, increased Ativan, Phenergan. After I left the room , patient reports to primary RN that she needs CIWA protocol for her withdrawal. She states that she drinks [place] ice teas better purchased at a gas station every day. 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 She admits to long-term heroin use for the last 6 years. [facility] report shows that patient has been getting smaller more frequent amounts of Klonopin at primary care. She also received some [place] from a dentist. I spoke with her provider who gives her Klonopin, apparently recently she called the office stating that she dropped her medication in the yard and was unable to use it and asked for a refill. She has asked to be transferred to another hospital, she has threatened to leave the facility and states that she will not be stopped by security, she states that she does not want to see a nurse practitioner wants to see a doctor. On exam, she denied headache or blurred vision, she denied abdominal pain or peripheral edema, she denied URI symptoms or cough. She denied chest pain or shortness of breath. Patient refused her banana bag unless she was given Phenergan since vitamin B12 gives her nausea. - Constitutional Vitals: Temp Pulse Resp BP Pulse Ox 98.0 F 74 15 99/64 98 05/04/17 18:44 05/04/17 18:44 05/04/17 18:44 05/04/17 18:44 05/04/17 18:44 General appearance: Present: A&O X 3, no acute distress, answers questions appropriately. Absent: cooperative, pleasant - Head Head exam: Present: atraumatic, normal inspection, normocephalic - Eye Eye exam: Present: normal appearance, conjuntiva pink, sclera anicteric - Neck Neck exam general surgery: Present: supple, trachea midline. Absent: lymphadenopathy, normal inspection, tenderness - Respiratory Respiratory exam: Present: CTAB. Absent: accessory muscle use, rales, rhonchi, wheezes - Cardiovascular Cardiovascular exam: Present: RRR, +S1, +S2. Absent: diastolic murmur, gallop, rubs, systolic murmur - GI/Abdominal GI/Abdominal exam: Present: normal bowel sounds, soft, no peritoneal signs. Absent: distended, hepatomegaly, tenderness - Extremities Exam Extremities exam: Present: normal capillary refill, normal inspection, warm, radial pulses palpable and symmetrical. Absent: calf tenderness, cyanotic, pedal edema, tenderness - Neurological Exam Neurological exam: Present: alert, oriented X3, no focal deficits. Absent: facial droop, speech deficit - Skin Skin exam: Present: dry, intact, normal color, warm. Absent: rash Internal Medicine: Result - Labs CBC & Chem 7: 05/03/17 20:10 05/04/17 04:33 Labs: BMP 05/04/17 04:33 Sodium 140 Potassium 3.0 L Chloride 110 H Carbon Dioxide 18 L BUN 10 Creatinine 0.59 Glucose 92 Calcium 8.3 L Consult Discharge Plan - Plan Referrals: NONE,PCP [Primary Care Provider] -
[2017-05-05] MEDS: *HR* LORazepam 2 MG/ML VIAL IVP PRN ×4 (00:41→23:59)
[2017-05-05] MEDS: cefTRIAXone 1,000 MG in Water for inj. (sterile) 10 ML IVP SCH (05:35)
[2017-05-05] MEDS: Ondansetron 4 MG/2 ML VIAL IVP PRN ×3 (06:31→21:33)
[2017-05-05 06:32] LABS: Basophils % 0.7 %; Eosinophils # 0.1 K/mcL (0.0-0.6); Eosinophils % 3.4 %; Hematocrit 34.7 % (35.3-44.9); Hemoglobin 11.3 g/dL (11.5-15.4); Immature Granulocytes % 0.3 % (0-4); Mean Corpuscular HGB Conc 32.6 g/dL (31.6-35.5); Mean Platelet Volume 9.7 fL (9.4-12.4); Monocytes # 0.3 K/mcL (0.0-1.3); Monocytes % 8.5 %; Neutrophils # 1.5 K/mcL (1.6-8.9); Platelet Count 186 K/mcL (140-400); Red Blood Count 3.77 M/mcL (3.82-4.97); Red Cell Distribution Width 12.2 % (11.5-14.5); Segmented Neutrophils % 52.1 %
[2017-05-05 06:44] LABS: Calcium 8.4 mg/dL (8.6-10.8); Carbon Dioxide 21 mEq/L (19-29); Chloride 114 mEq/L (98-109); Glucose 91 mg/dL (70-99); Potassium 3.8 mEq/L (3.5-4.5); Sodium 140 mEq/L (136-145); eGFR For African Americans > 60 (> 60); eGFR For Non-African Americans > 60 (> 60)
[2017-05-05 07:31] LABS: BUN/Creatinine Ratio 8 (6-26)
[2017-05-05 07:32] LABS: Blood Urea Nitrogen 5 mg/dL (7-20); Osmolality,Calculated 287 (280-300)
[2017-05-05] MEDS ORDERED: *HR* LORazepam 2 MG/ML VIAL IVP PRN (08:06)
[2017-05-05] MEDS: Folic Acid 1 MG TABLET PO SCH (08:51)
[2017-05-05] MEDS: Thiamine (B-1) 100 MG TABLET PO SCH (08:51)
[2017-05-05] MEDS: Nicotine 21 MG PATCH.TD24 TD SCH (08:51)
[2017-05-05] MEDS: Vitamin B Complex/Vit C/Vit E 1 EACH TABLET PO SCH (08:51)
[2017-05-05] MEDS: Topiramate 25 MG TABLET PO SCH ×2 (08:51→20:25)
[2017-05-05] MEDS: Fluticasone Propionate Nasal 50 MCG/SPRAY BOTTLE NS SCH (08:52)
--- NOTE | 2017-05-05 13:52 | Electrocardiograph Report ---
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
--- NOTE | 2017-05-05 14:30 | Internal Med Progress Note ---
Date of Encounter: 05/05/17 Time of Encounter: 11:00 - Assessment and plan (1) Suicidal ideation Current Visit: Yes Status: Acute Assessment and plan: During initial exam, patient stated that she was suicidal. She states that she wanted to drive her car into a telephone pole. Sitter is at bedside. Patient is pink slipped. After she is medically cleared, she will be reevaluated by psychiatry for placement in an inpatient unit. (2) Depression Current Visit: Yes Status: Chronic Assessment and plan: Continue home medications. Qualifiers: Depression Type: unspecified Qualified Code(s): F32.9 - Major depressive disorder, single episode, unspecified (3) Drug abuse Current Visit: Yes Status: Chronic Assessment and plan: Patient reports chronic heroin use, depending on who she is talking to his anywhere from 6-8 years of use. Patient reports to me that she has not used heroin 3 days, she tells psychiatry that she used IV heroin twice yesterday. Oarrs report indicates that she has been getting Klonopin regularly, sometimes at smaller doses, most recently 90 pills which she used overdose this visit. She also received some [place] from a dentist recently. I spoke with provider who provides her Klonopin. Approximately a month ago she called the office and stated she dropped off her Klonopin in her front yard and was requesting a refill. Patient also reports being dependent on alcohol. She reports drinking daily. She drinks [place] ice teas that are purchased at a local [employer] station. She tells me last drink was 3 days ago. She has been scoring 10-11 on CIWA scale and has been getting Ativan when it is available. Since she has had no relief from Ativan and current CIWA scale, I consulted with PD who suggests adding Librium. Pt is aware and agreeable. Librium added to withdrawl protocol, 25mg po QID prn withdrawl symptoms Continue CIWA protocol. Continue to monitor, wean as soon as possible. Patient to potentially be placed in inpatient psychiatric unit after medically cleared. (4) Major depressive disorder, recurrent Current Visit: Yes Status: Chronic Assessment and plan: Chronic. Continue home medications. Qualifiers: Active/Remission status: currently active Major depression episode severity : moderate Qualified Code(s): F33.1 - Major depressive disorder, recurrent, moderate (5) Anxiety Current Visit: Yes Status: Chronic Assessment and plan: Pt is getting Ativan and Librium for withdrawl symptoms. Continue to monitor pt and labs. (6) Opiate dependence Current Visit: Yes Status: Chronic Assessment and plan: Pt reports heroin use for anywhere from 6-8 years. Last use 3 days prior to admission. Qualifiers: Substance use status: in withdrawal Qualified Code(s): F11.23 - Opioid dependence with withdrawal (7) Alcohol dependence Current Visit: Yes Status: Chronic Assessment and plan: Patient reports drinking alcohol daily. She says that she drinks [employer] ice teas that she purchases at a local [employer]. CIWA protocol in place. Continue to monitor. Librium has been added due to ineffectiveness of Ativan/CIWA protocol alone. Qualifiers: Substance use status: uncomplicated Qualified Code(s): F10.20 - Alcohol dependence, uncomplicated (8) Benzodiazepine dependence Current Visit: Yes Status: Chronic (9) Hypokalemia Current Visit: Yes Status: Resolved Assessment and plan: Continue to monitor labs in the morning. She received supplementation. - Time Spent With Patient less than 15 minutes - Subjective Interval history: Patient was seen and assessed at bedside at 1100. She is alert, awake, tearful. She is upset about losing her children and job. She is agreeable to starting Librium. Pt is aware of POC. Questions answered. Pt states that she is hearing voices "being mean" to her and that she feels bugs crawling on her. - Constitutional Vitals: Temp Pulse Resp BP Pulse Ox 97.3 F L 53 14 107/70 98 05/05/17 11:21 05/05/17 11:21 05/05/17 11:21 05/05/17 11:21 05/05/17 11:21 General appearance: Present: cooperative, A&O X 3, pleasant, no acute distress, answers questions appropriately - Head Head exam: Present: atraumatic, normal inspection, normocephalic - Eye Eye exam: Present: normal appearance, conjuntiva pink, sclera anicteric - Neck Neck exam general surgery: Present: supple, trachea midline. Absent: lymphadenopathy - Respiratory Respiratory exam: Present: CTAB. Absent: accessory muscle use, chest wall tenderness, rales, respiratory distress, rhonchi, wheezes - Cardiovascular Cardiovascular exam: Present: RRR, +S1, +S2. Absent: diastolic murmur, gallop, rubs, systolic murmur - GI/Abdominal GI/Abdominal exam: Present: normal bowel sounds, soft. Absent: distended, hepatomegaly, tenderness - Extremities Exam Extremities exam: Present: normal capillary refill, warm, radial pulses palpable and symmetrical. Absent: calf tenderness, cyanotic, pedal edema - Neurological Exam Neurological exam: Present: alert, oriented X3, no focal deficits. Absent: facial droop, speech deficit - Skin Skin exam: Present: dry, intact, normal color. Absent: rash, warm Internal Medicine: Result - Labs CBC & Chem 7: 05/05/17 06:20 05/05/17 06:20 Labs: Short CBC 05/05/17 Range/Units 06:20 WBC 2.9 L D (4.3-11.1) K/mcL Hgb 11.3 L (11.5-15.4) g/dL Hct 34.7 L (35.3-44.9) % Plt Count 186 (140-400) K/mcL Neutrophils # 1.5 L (1.6-8.9) K/mcL BMP 05/05/17 06:20 Sodium 140 Potassium 3.8 Chloride 114 H Carbon Dioxide 21 BUN 5 L Creatinine 0.66 Glucose 91 Calcium 8.4 L Consult Discharge Plan - Plan Referrals: NONE,PCP [Primary Care Provider] -
[2017-05-05] MEDS: Thiamine (B-1) 100 MG, Folic Acid 1 MG, MVI, adult with vitamin K 10 ML in 0.9 % Sodi... IVPB SCH (17:32)
[2017-05-05 18:18] LABS: Basophils % 0.5 %; Eosinophils # 0.2 K/mcL (0.0-0.6); Eosinophils % 4.9 %; Hematocrit 32.7 % (35.3-44.9); Lymphocytes # 1.7 K/mcL (0.6-4.6); Lymphocytes % 39.4 %; Mean Corpuscular HGB Conc 33.6 g/dL (31.6-35.5); Mean Corpuscular Hemoglobin 30.3 pg (28.0-33.3); Mean Corpuscular Volume 90.1 fL (83.0-100.0); Mean Platelet Volume 9.6 fL (9.4-12.4); Monocytes # 0.3 K/mcL (0.0-1.3); Monocytes % 6.7 %; Neutrophils # 2.1 K/mcL (1.6-8.9); Platelet Count 193 K/mcL (140-400); Red Blood Count 3.63 M/mcL (3.82-4.97); Red Cell Distribution Width 12.2 % (11.5-14.5); Segmented Neutrophils % 48.5 %
[2017-05-05] MEDS ORDERED: traZODone 50 MG TABLET PO ONE (20:42)
[2017-05-05] MEDS: Acetaminophen 325 MG TABLET PO PRN (21:32)
[2017-05-06 04:54] LABS: Basophils % 0.4 %; Eosinophils # 0.2 K/mcL (0.0-0.6); Eosinophils % 4.9 %; Hematocrit 33.5 % (35.3-44.9); Lymphocytes # 1.6 K/mcL (0.6-4.6); Mean Corpuscular HGB Conc 32.8 g/dL (31.6-35.5); Mean Corpuscular Hemoglobin 29.8 pg (28.0-33.3); Mean Corpuscular Volume 90.8 fL (83.0-100.0); Mean Platelet Volume 9.9 fL (9.4-12.4); Monocytes # 0.3 K/mcL (0.0-1.3); Monocytes % 6.6 %; Neutrophils # 2.7 K/mcL (1.6-8.9); Platelet Count 199 K/mcL (140-400); Red Blood Count 3.69 M/mcL (3.82-4.97); Red Cell Distribution Width 12.2 % (11.5-14.5); Segmented Neutrophils % 56.1 %
[2017-05-06 04:58] LABS: BUN/Creatinine Ratio 8 (6-26); Calcium 8.6 mg/dL (8.6-10.8); Carbon Dioxide 19 mEq/L (19-29); Chloride 115 mEq/L (98-109); Glucose 89 mg/dL (70-99); Osmolality,Calculated 285 (280-300); Potassium 3.4 mEq/L (3.5-4.5); Sodium 139 mEq/L (136-145); eGFR For African Americans > 60 (> 60); eGFR For Non-African Americans > 60 (> 60)
[2017-05-06 04:59] LABS: Blood Urea Nitrogen 5 mg/dL (7-20)
[2017-05-06] MEDS: cefTRIAXone 1,000 MG in Water for inj. (sterile) 10 ML IVP SCH (05:43)
[2017-05-06] MEDS: Folic Acid 1 MG TABLET PO SCH (08:41)
[2017-05-06] MEDS: Topiramate 25 MG TABLET PO SCH (08:42)
[2017-05-06] MEDS: Vitamin B Complex/Vit C/Vit E 1 EACH TABLET PO SCH (08:42)
[2017-05-06] MEDS: Nicotine 21 MG PATCH.TD24 TD SCH (08:43)
[2017-05-06] MEDS: Fluticasone Propionate Nasal 50 MCG/SPRAY BOTTLE NS SCH (08:43)
[2017-05-06] MEDS: Thiamine (B-1) 100 MG TABLET PO SCH (08:44)
--- NOTE | 2017-05-06 12:01 | Internal Med Progress Note ---
Date of Encounter: 05/06/17 Time of Encounter: 09:05 - Assessment and plan (1) Suicidal ideation Current Visit: Yes Status: Acute Assessment and plan: During initial exam, patient stated that she was suicidal. She states that she wanted to drive her car into a telephone pole. Sitter is at bedside. Patient is pink slipped. Pt is medically cleared and I have asked psychiatrist to return to see pt today and assess for placement. (2) Depression Current Visit: Yes Status: Chronic Assessment and plan: Continue home medications. Patient takes Lexapro, it has been continued. Qualifiers: Depression Type: unspecified Qualified Code(s): F32.9 - Major depressive disorder, single episode, unspecified (3) Drug abuse Current Visit: Yes Status: Chronic Assessment and plan: Patient reports chronic heroin use, depending on who she is talking to his anywhere from 6-8 years of use. Patient reports to me that she has not used heroin 3 days, she tells psychiatry that she used IV heroin twice yesterday. Oarrs report indicates that she has been getting Klonopin regularly, sometimes at smaller doses, most recently 90 pills which she used overdose this visit. She also received some [place] from a dentist recently. I spoke with provider who provides her Klonopin. Approximately a month ago she called the office and stated she dropped off her Klonopin in her front yard and was requesting a refill. Patient also reports being dependent on alcohol. She reports drinking daily. She drinks [employer] ice teas that are purchased at a local [employer] station. She tells me last drink was 3 days ago. Patient was receiving no relief from Ativan and was requesting more more frequently than it was ordered. Librium 25 mg by mouth 4 times a day was ordered yesterday. Patient is exhibiting no visible, physiological signs of withdrawal. Dose has not been increased. Librium added to withdrawl protocol, 25mg po QID prn withdrawl symptoms Continue CIWA protocol. Continue to monitor, wean as soon as possible. Patient has been medically cleared. She is exhibiting no symptoms of acute withdrawal. (4) Major depressive disorder, recurrent Current Visit: Yes Status: Chronic Assessment and plan: Chronic. Continue home medications. Qualifiers: Active/Remission status: currently active Major depression episode severity : moderate Qualified Code(s): F33.1 - Major depressive disorder, recurrent, moderate (5) Anxiety Current Visit: Yes Status: Chronic Assessment and plan: Pt is getting Librium for withdrawl symptoms, Ativan has been ordered for backup. Continue to monitor pt and labs. (6) Opiate dependence Current Visit: Yes Status: Chronic Assessment and plan: Pt reports heroin use for anywhere from 6-8 years. Last use 3 days prior to admission. Qualifiers: Substance use status: in withdrawal Qualified Code(s): F11.23 - Opioid dependence with withdrawal (7) Alcohol dependence Current Visit: Yes Status: Chronic Assessment and plan: Patient reports drinking alcohol daily. She says that she drinks [employer] ice teas that she purchases at a local [employer]. CIWA protocol in place. Continue to monitor. Librium has been added due to ineffectiveness of Ativan/CIWA protocol alone. Qualifiers: Substance use status: uncomplicated Qualified Code(s): F10.20 - Alcohol dependence, uncomplicated (8) Benzodiazepine dependence Current Visit: Yes Status: Chronic Assessment and plan: Patient admits to overusing Klonopin that has been prescribed to her. CIWA protocol is in place. Patient is not exhibiting any actual physiological symptoms of withdrawal. (9) Hypokalemia Current Visit: Yes Status: Inactive Assessment and plan: Continue to monitor labs in the morning. She received supplementation. - Time Spent With Patient less than 15 minutes - Subjective Interval history: Patient was seen and assessed at bedside at 0905. She is alert, awake, pleasant. We discussed that she is medically cleared and ready to be reassessed by mental health. She is agreeable. She is in no visible distress. She is p/w/d, resps are unlabored. She is not diaphoretic, does not have tremors , she does not appear to be anxious. She denies headache, n/v/d, or chest pain. She states that Librium is not working for her and has requested IV Ativan from nurses. She has been hypotensive, so doses have been held. - Constitutional Vitals: Temp Pulse Resp BP Pulse Ox 97.9 F 61 16 103/67 97 05/06/17 07:38 05/06/17 08:36 05/06/17 07:38 05/06/17 08:36 05/06/17 07:38 General appearance: Present: cooperative, A&O X 3, pleasant, no acute distress, answers questions appropriately - Head Head exam: Present: atraumatic, normal inspection, normocephalic - Eye Eye exam: Present: normal appearance, conjuntiva pink, sclera anicteric. Absent : EOMI, nystagmus - Neck Neck exam general surgery: Present: normal inspection, supple, trachea midline. Absent: lymphadenopathy - Respiratory Respiratory exam: Present: CTAB. Absent: accessory muscle use, chest wall tenderness, decreased breath sounds, rales, rhonchi, wheezes - Cardiovascular Cardiovascular exam: Present: RRR, +S1, +S2. Absent: diastolic murmur, gallop, rubs, systolic murmur - GI/Abdominal GI/Abdominal exam: Present: normal bowel sounds, soft. Absent: distended, hepatomegaly, tenderness - Extremities Exam Extremities exam: Present: normal inspection, warm, radial pulses palpable and symmetrical. Absent: calf tenderness, cyanotic, normal capillary refill, pedal edema, tenderness - Neurological Exam Neurological exam: Present: alert, oriented X3, no focal deficits. Absent: altered, facial droop, speech deficit - Skin Skin exam: Present: dry, intact, normal color, warm. Absent: rash Internal Medicine: Result - Labs CBC & Chem 7: 05/06/17 04:32 05/06/17 04:32 Labs: Short CBC 05/05/17 05/06/17 Range/Units 18:11 04:32 WBC 4.3 4.9 (4.3-11.1) K/mcL Hgb 11.0 L 11.0 L (11.5-15.4) g/dL Hct 32.7 L 33.5 L (35.3-44.9) % Plt Count 193 199 (140-400) K/mcL Neutrophils # 2.1 2.7 (1.6-8.9) K/mcL BMP 05/06/17 04:32 Sodium 139 Potassium 3.4 L Chloride 115 H Carbon Dioxide 19 BUN 5 L Creatinine 0.64 Glucose 89 Calcium 8.6 Consult Discharge Plan - Plan Referrals: NONE,PCP [Primary Care Provider] -
[2017-05-06 12:35] VITALS: BP 102/71
[2017-05-06] MEDS: Acetaminophen 325 MG TABLET PO PRN (14:52)
--- NOTE | 2017-05-06 15:40 | Psychiatry Progress Note ---
Date of Encounter: 05/06/17 Time of Encounter: 15:31 Subjective Interval history: Patient seen for Psychiatry Consult, see Dr. Peters's note. Today was seen for follow up visit. Patient resting in bed, appears in no acute distress. States she is feeling much better since time of admission. She reports she had taken too much Klonopin due to tolerance. She had also been using heroin and marijuana. She reported at the time of admission she was feeling hopeless. She denies this currently. States she wants to obtain treatment and make significant changes in her life. She is future focused. She plans to obtain psychiatric and dual diagnosis treatment after discharge. Patient states she has a history of depression, currently takes Lexapro 20 mg daily, Trazodone 100 mg QHS, she is also prescribed Topamax 100 mg BID for seizures. Patient states Trazodone promotes improved sleep. Patient denies SIISABEL, kenneth. She states she wants to get better so she can regain custody of her children. She would like to volunteer at a horse farm. She has spoken with her boyfriend and is hoping she can be discharged today and go to his home. Review of Systems Psychiatric: Reports: depression, anxiety, abnormal sleep pattern, suicidal ideation, difficulty concentrating, hopelessness, mood swings, panic attacks Objective: Exam Level of alertness: Alert Patient appearance: Appropriate Behavior: calm Psychomotor activity: Normal Eye contact: Maintains Eye Contact Mood description: Anxious, Other (improved from time of admission, she is now hopeful about her future) Affect description: congruent with mood Speech pattern: Normal rate Speech volume: Normal Thought process: Intact Thought content: Yes Intact (Insight: adequate) Results - Vital Signs Vital Signs: Temp Pulse Resp BP Pulse Ox 98.1 F 48 16 102/71 98 05/06/17 12:35 05/06/17 12:35 05/06/17 12:35 05/06/17 12:35 05/06/17 12:35 - Labs Labs: Laboratory Results - last 24 hr 05/05/17 05/06/17 05/06/17 18:11 04:32 04:32 WBC 4.3 4.9 RBC 3.63 L 3.69 L Hgb 11.0 L 11.0 L Hct 32.7 L 33.5 L MCV 90.1 90.8 MCH 30.3 29.8 MCHC 33.6 32.8 RDW 12.2 12.2 Plt Count 193 199 MPV 9.6 9.9 Immature Gran % 0.0 0.0 Seg Neutrophils % 48.5 56.1 Lymphocytes % 39.4 32.0 Monocytes % 6.7 6.6 Eosinophils % 4.9 4.9 Basophils % 0.5 0.4 Neutrophils # 2.1 2.7 Lymphocytes # 1.7 1.6 Monocytes # 0.3 0.3 Eosinophils # 0.2 0.2 Basophils # 0.0 0.0 Sodium 139 Potassium 3.4 L Chloride 115 H Carbon Dioxide 19 BUN 5 L Creatinine 0.64 Est GFR ( Amer) > 60 Est GFR (Non-Af Amer) > 60 BUN/Creatinine Ratio 8 Glucose 89 Calculated Osmolality 285 Calcium 8.6 Assessment and Plan (1) Depression Current visit: Yes Status: Chronic Additional Plan: Follow up with outpatient psychiatric and dual diagnosis treatment. Patient would like to follow up at [facility] and [facility]. and go to a community mental health center for psychiatric treatment. Abstain from substance use Attend 12 step meetings Qualifiers: Depression Type: unspecified Consult Discharge Plan - Plan Referrals: NONE,PCP [Primary Care Provider] -
[2017-05-06] MEDS: Thiamine (B-1) 100 MG, Folic Acid 1 MG, MVI, adult with vitamin K 10 ML in 0.9 % Sodi... IVPB SCH (16:09)
--- NOTE | 2017-05-06 17:06 | Event Note ---
Date of Encounter: 05/06/17 Time of Encounter: 17:02 I evaluated the patient at the bedside. She wants to leave the hospital. She was evaluated by psychiatry earlier today and they recommended outpatient follow-up but did not clearly discontinue suicide precautions or pink slip. The patient firmly denies any suicidal or homicidal ideation at this time. She wants to get out and get her life back on track. She agrees to follow up with outpatient counseling. Her pink slip will today at 20:17. Plan: We have paged to psychiatrist to establish whether or not the patient is cleared for discharge. Awaiting to hear from the psychiatrist at this time. Pending psychiatry reevaluation we will continue with pink slip and suicidal precautions until 20:16 this evening.
--- NOTE | 2017-05-06 17:17 | Discharge Summary ---
Date of Encounter: 05/06/17 Time of Encounter: 16:45 - Discharge Diagnosis (1) Suicidal ideation Priority: Primary Status: Acute Comments: During initial exam, patient stated that she was suicidal. She states that she wanted to drive her car into a telephone pole. Patient was pink slipped at admission and had a sitter and seizure precautions in place throughout visit. Pt is medically cleared and was cleared by psychiatrist, Dr. Rodriguez, this evening. Pt was evaluated by Dr. Rodriguez and found to not be suicidal, homicidal, and is not having auditory or visual hallucinations. I spoke with Dr. Rodriguez by phone at 17:10 and she clarifies that pt does not meet criteria for inpatient placement and is safe to be discharged. Pt again denies having SI/HI and later states that she is "too chicken to crash my car into a telephone pole." Pt is stable medically for discharge, as well. (2) Depression Priority: Secondary Status: Chronic Comments: Pt takes Lexapro at home. Continue after discharge. Qualifiers: Depression Type: unspecified Qualified Code(s): F32.9 - Major depressive disorder, single episode, unspecified (3) Drug abuse Priority: Secondary Status: Chronic Comments: Patient reports chronic heroin use, depending on who she is talking to his anywhere from 6-8 years of use. Patient reports to me that she has not used heroin 3 days, she tells psychiatry that she used IV heroin twice yesterday. This evening pt states that she and her sister used heroin the day before she was admitted. Oarrs report indicates that she has been getting Klonopin regularly, sometimes at smaller doses, most recently 90 pills which she used overdose this visit. She also received some [place] from a dentist recently. I spoke with provider who provides her Klonopin. Approximately a month ago she called the office and stated she dropped off her Klonopin in her front yard and was requesting a refill. Patient also reports being dependent on alcohol. She reports drinking daily. She drinks [place] ice teas that are purchased at a local [id number] station. She tells me last drink was 3 days ago. Patient was receiving no relief from Ativan and was requesting more more frequently than it was ordered. Librium 25 mg by mouth 4 times a day was ordered yesterday. Patient is exhibiting no visible, physiological signs of withdrawal. Dose has not been increased. Pt reports tonight that she is out of Klonipin at home and is not at risk for overdose with her other home medications. (4) Major depressive disorder, recurrent Priority: Secondary Status: Chronic Comments: Chronic. Continue home medications. Pt states that she will follow up with provider in [place] and do intensive treatment for depression and addiction. Qualifiers: Active/Remission status: currently active Major depression episode severity : moderate Qualified Code(s): F33.1 - Major depressive disorder, recurrent, moderate (5) Anxiety Priority: Secondary Status: Chronic Comments: Chronic. Pt has been getting Ativan and Librium throughout visit. She states that she is out of Klonipin at home. She will need to follow up with her prescriber for further refills or medication changes, if necessary. (6) Opiate dependence Priority: Secondary Status: Chronic Comments: Plan as above. Pt states that she had been clean for several months prior to recent heroin use. Pt will follow up with out treatment program. Qualifiers: Substance use status: in withdrawal Qualified Code(s): F11.23 - Opioid dependence with withdrawal (7) Alcohol dependence Priority: Secondary Status: Chronic Comments: Plan as above. Qualifiers: Substance use status: uncomplicated Qualified Code(s): F10.20 - Alcohol dependence, uncomplicated (8) Benzodiazepine dependence Priority: Secondary Status: Chronic Comments: Plan as above. (9) Hypokalemia Priority: Secondary Status: Inactive Comments: Resolved. Pt has been given supplementation. - Discharge Medications Home Medications: Topiramate [Topamax] 100 mg PO BID 04/24/16 [History] Escitalopram [Lexapro] 10 mg PO DAILY 05/04/17 [History] TraZODone 100 mg PO HS PRN 05/04/17 [History] clonazePAM [Klonopin] 1 mg PO TID 05/04/17 [History] Allergies/Adverse Reactions: 3 Allergy/AdvReac Type Severity Reaction Status Date / Time Penicillins Allergy Hives Verified 03/17/17 07:05 Date of admission: 05/04/17 01:16 Primary care physician: PCP NONE Consults: 05/04/17 07:29 Consult to Psychiatry [CONS] Routine Consulting Provider: Psychiatry Francie Reason for Consult: SI, depression, OD Call Completed: No 05/04/17 14:49 Consult to [facility]ighbridge Operator [CONS] Routine Reason for SW Consult: dishcarge planning 05/05/17 08:06 Consult to [facility]igh[facility] Operator [CONS] Routine Reason for SW Consult: discharge planning 05/05/17 14:13 Consult to [facility]igh[facility] Operator [CONS] Routine Reason for SW Consult: resources. Discharging clinician: Jennifer Mcclain Anticipated date of discharge: 05/06/17 - Patient Status Disposition: Home, Self-Care Condition: Good Functional capacity at discharge: independent ambulation Overall status at discharge: patient is progressing back to baseline - Discharge Instructions Follow Up With: NONE,PCP [Primary Care Provider] - Additional Instructions: Please follow up with [facility] as planned. Please follow up with your PCP in the next 7-10 days. Return to your normal activities and diet as tolerated. Return to the ER as needed for any other problems or concerns. - Diet and Activity Activity: increase activity as tolerated Diet: advance to your usual diet Hospital course: Ms. Dale is a 26 year old female with PMH of depression, anxiety, bipolar disorder, polysubstance abuse. Pt was admitted for SI/HI and Klonipin OD. She was pinkslipped and had a sitter throughout visit. She was requiring minimal amount of Ativan and Librium for CIWA protocol. Pt has been cleared by psychiatrist and is not suicidal, homicidal, and is not having hallucinations. Pt is medically clear and has been cleared by psychiatrist for discharge. Pt has plans for outpatient therapy after discharge. Pt stable and ready for discharge. - Time Spent with Patient Total time spent providing and/or coordinating discharge services: Less than 30 minutes - Constitutional Vitals: Temp Pulse Resp BP Pulse Ox 98.1 F 48 16 102/71 98 05/06/17 12:35 05/06/17 12:35 05/06/17 12:35 05/06/17 12:35 05/06/17 12:35 General appearance: Present: cooperative, A&O X 3, pleasant, no acute distress, answers questions appropriately - Head Head exam: Present: atraumatic, normal inspection, normocephalic - Eye Eye exam: Present: normal appearance, conjuntiva pink, sclera anicteric - Neck Neck exam general surgery: Present: supple, trachea midline. Absent: lymphadenopathy, tenderness - Respiratory Respiratory exam: Present: CTAB. Absent: accessory muscle use, rales, rhonchi, wheezes - Cardiovascular Cardiovascular exam: Present: RRR, +S1, +S2. Absent: diastolic murmur, gallop, rubs, systolic murmur - GI/Abdominal GI/Abdominal exam: Present: normal bowel sounds, soft. Absent: distended, hepatomegaly, tenderness - Extremities Exam Extremities exam: Present: normal capillary refill, normal inspection, warm, radial pulses palpable and symmetrical. Absent: calf tenderness, cyanotic, pedal edema, tenderness - Neurological Exam Neurological exam: Present: alert, oriented X3, no focal deficits. Absent: altered, facial droop, speech deficit - Skin Skin exam: Present: dry, intact, normal color, warm. Absent: rash
== END 2017-05-06 18:05 | disposition home or self-care (01) ==
LOC: EMEROO 19:46 → 3BNU 19:46
PROVIDERS: ADMIT Registered Nurse; ATTEND Registered Nurse

== ENCOUNTER 2017-12-23 13:37 | Observation (INO) ==
--- NOTE | 2017-12-23 14:31 | Emergency Department Note ---
Disposition Clinical Impression: Suicidal ideation Disposition: Admitted As Inpatient Condition: Good Psych HPI - General Chief Complaint: ED Psychiatric Symptoms Stated Complaint: psych eval, SI Time Seen by Provider: 12/23/17 13:59 Source: patient Mode of arrival: private vehicle Limitations: no limitations Nursing Notes Reviewed: Yes Vital Signs Reviewed: Yes - History of Present Illness HPI Narrative: 27-year-old female history of anxiety who presents to the ER with a complaint of suicidal ideations. Reports that she has had multiple life stressors going on. She states that yesterday she tried to find a gun and use it however she was unable to. She states that she has had thoughts of suicide previously and has both ingested in the past. She denies auditory or visual hallucinations. She denies any recent alcohol or drug use. States she did used to have a history of drug abuse. No other complaints. Pt complaint: suicidal ideation Onset (ago): day(s) Duration: intermittent History of similar episodes: Yes Improves with: none Worsens with: none Context: significant life stressor Alleged intoxication: No Associated Psychiatric Symptoms: depression, suicidal ideation Associated symptoms: Reports: denies other symptoms Traumatic symptoms: denies traumatic injury Treatments prior to arrival: none Self harm or harm to others: admits thoughts of self harm, has plan - Related Data Home Medications Medication Instructions Recorded Confirmed Topiramate [Topamax] 100 mg PO BID 04/24/16 05/04/17 Escitalopram [Lexapro] 10 mg PO DAILY 05/04/17 05/04/17 TraZODone 100 mg PO HS PRN 05/04/17 05/04/17 clonazePAM [Klonopin] 1 mg PO TID 05/04/17 05/04/17 Allergies Allergy/AdvReac Type Severity Reaction Status Date / Time Penicillins Allergy Hives Verified 12/23/17 13:59 All systems ED: reviewed and negative except as stated. Psychiatric: Reports: anxiety, depression, suicidal thoughts. Denies: homicidal thoughts, auditory hallucinations, visual hallucinations Past Medical History - Past Medical History Attestation: Yes The following information was validated with the patient. Source: patient Medical history: Reports: migraine, seizures Surgical history: Reports: cholecystectomy Psychiatric history: Reports: anxiety, bipolar, depression, panic disorder, prior suicide attempt, previous psychiatric hospitalization [employer] history: Reports: bilateral tubal ligation - Social History Smoking Status: Current every day smoker Smokeless Tobacco Status: No Alcohol use: Reports: none Drug use: Reports: marijuana Physical Exam - General Limitations: no limitations General appearance: alert, in no apparent distress - Head Head exam: atraumatic, normocephalic - Eye Eye exam: Present: normal appearance - ENT ENT exam: normal exam - Neck Neck exam: Present: normal inspection - Chest Chest inspection: Present: normal inspection, symmetric chest wall rise - Respiratory Respiratory exam: Present: normal lung sounds bilaterally - Cardiovascular Cardiovascular exam: Present: normal rhythm, tachycardia, normal heart sounds - Abdominal Exam Abdominal exam: Present: soft, Non-Tender. Absent: tenderness - Extremities Exam Extremities exam: Present: normal inspection, full ROM - Expanded Upper Extremity Exam Shoulder exam: Present: normal inspection, full ROM Arm exam: Present: normal inspection, full ROM Elbow exam: Present: normal inspection, full ROM Forearm/Wrist exam: Present: normal inspection, full ROM Hand exam: Present: normal inspection, full ROM - Expanded Lower Extremity Exam Hip/Pelvis exam: Present: normal inspection, full ROM Upper leg exam: Present: normal inspection, full ROM Knee exam: Present: normal inspection, full ROM Lower leg exam: Present: normal inspection, full ROM Ankle exam: Present: normal inspection, full ROM Foot/toe exam: Present: normal inspection, full ROM - Psychiatric Psychiatric exam: Present: depressed, homicidal ideation - Skin Skin exam: Present: warm, dry Course Course Narrative: Patient seen and examined. Vital signs reviewed. [place] slipped for psychiatric evaluation. Medical clearance with labs and urinalysis. Vital Signs Temperature 98.3 F 12/23/17 13:53 Pulse Rate 112 12/23/17 13:53 Respiratory Rate 20 12/23/17 13:53 Blood Pressure 126/92 12/23/17 13:53 O2 Sat by Pulse Oximetry 96 12/23/17 13:53 Temperature 98.3 F 12/23/17 13:53 Pulse Rate 112 12/23/17 13:53 Respiratory Rate 20 12/23/17 13:53 Blood Pressure 126/92 12/23/17 13:53 O2 Sat by Pulse Oximetry 96 12/23/17 13:53 Oxygen Delivery Oxygen Delivery Room Air Psych - MDM Narrative Medical decision making narrative: Patient medically cleared for suicidal ideations. Evaluated by psychiatry and will be admitted. - Lab Data Lab results reviewed: Yes I reviewed the patient's lab results. Result diagrams: 12/23/17 14:24 12/23/17 14:24 Lab Results 12/23/17 12/23/17 12/23/17 Range/Units 14:24 14:24 14:35 WBC 5.8 (4.3-11.1) K/mcL RBC 4.29 (3.82-4.97) M/mcL Hgb 12.9 (11.5-15.4) g/dL Hct 39.2 (35.3-44.9) % MCV 91.4 (83.0-100.0) fL MCH 30.1 (28.0-33.3) pg MCHC 32.9 (31.6-35.5) g/dL RDW 13.2 (11.5-14.5) % Plt Count 216 (140-400) K/mcL MPV 9.9 (9.4-12.4) fL Immature Gran % 0.2 (0-4) % Seg Neutrophils % 68.3 % Lymphocytes % 24.4 % Monocytes % 5.0 % Eosinophils % 1.6 % Basophils % 0.5 % Neutrophils # 4.0 (1.6-8.9) K/mcL Lymphocytes # 1.4 (0.6-4.6) K/mcL Monocytes # 0.3 (0.0-1.3) K/mcL Eosinophils # 0.1 (0.0-0.6) K/mcL Basophils # 0.0 (0.0-0.2) K/mcL Sodium 140 (136-145) mEq/L Potassium 3.4 L (3.5-5.1) mEq/L Chloride 113 H (98-107) mEq/L Carbon Dioxide 19 L (23-29) mEq/L BUN 8 (6-20) mg/dL Creatinine 0.63 (0.60-1.20) mg/dL Est GFR ( Amer) > 60 (> 60) Est GFR (Non-Af Amer) > 60 (> 60) BUN/Creatinine Ratio 13 (6-26) Glucose 110 H (70-105) mg/dL Calculated Osmolality 289 (280-300) Calcium 9.3 (8.6-10.3) mg/dL TSH 1.882 (0.340-5.600) mcIU/mL Urine Color Dark Yellow (Yellow) Urine Clarity Cloudy A (Clear) Urine pH 5.5 (5.0-8.0) pH Units Ur Specific [place] 1.028 H (1.010-1.025) Urine Protein Trace (Neg-Trace) mg/dL Urine Glucose (UA) Normal (Normal) mg/dL Urine Ketones Trace H (Negative) mg/dL Urine Blood Negative (Negative) Urine Nitrite Negative (Negative) Urine Bilirubin Small H (Negative) Urine Urobilinogen Normal (Normal) mg/dL Ur Leukocyte Esterase Trace H (Negative) Urine Microscopic RBC 15-30 H (0-3) per hpf Urine Microscopic WBC 5-15 H (0-3) per hpf Ur Squamous Epith Cells Many H (None-Few) per lpf Urine Bacteria Few (None-Few) per hpf Hyaline Casts Moderate H (None-Few) per lpf Salicylates < 2.5 L (15.0-30.0) mg/dL Urine Opiates Screen (Pulypq=048) ng/mL Acetaminophen < 10 L (10-20) mcg/mL Ur Barbiturates Screen (Tjjyji=319) ng/mL Ur Phencyclidine Scrn (Cutoff=25) ng/mL Ur Amphetamines Screen (Gwrebk=0991) ng/mL U Benzodiazepines Scrn (Ljyfsn=815) ng/mL Urine Cocaine Screen (Cutoff= 300) ng/mL U Marijuana (THC) Screen (Cutoff = 50) ng/mL Ur Drug Screen Interp Ethyl Alcohol < 10 (Less than 10) mg/dL 12/23/17 Range/Units 14:35 WBC (4.3-11.1) K/mcL RBC (3.82-4.97) M/mcL Hgb (11.5-15.4) g/dL Hct (35.3-44.9) % MCV (83.0-100.0) fL MCH (28.0-33.3) pg MCHC (31.6-35.5) g/dL RDW (11.5-14.5) % Plt Count (140-400) K/mcL MPV (9.4-12.4) fL Immature Gran % (0-4) % Seg Neutrophils % % Lymphocytes % % Monocytes % % Eosinophils % % Basophils % % Neutrophils # (1.6-8.9) K/mcL Lymphocytes # (0.6-4.6) K/mcL Monocytes # (0.0-1.3) K/mcL Eosinophils # (0.0-0.6) K/mcL Basophils # (0.0-0.2) K/mcL Sodium (136-145) mEq/L Potassium (3.5-5.1) mEq/L Chloride (98-107) mEq/L Carbon Dioxide (23-29) mEq/L BUN (6-20) mg/dL Creatinine (0.60-1.20) mg/dL Est GFR ( Amer) (> 60) Est GFR (Non-Af Amer) (> 60) BUN/Creatinine Ratio (6-26) Glucose (70-105) mg/dL Calculated Osmolality (280-300) Calcium (8.6-10.3) mg/dL TSH (0.340-5.600) mcIU/mL Urine Color (Yellow) Urine Clarity (Clear) Urine pH (5.0-8.0) pH Units Ur Specific [place] (1.010-1.025) Urine Protein (Neg-Trace) mg/dL Urine Glucose (UA) (Normal) mg/dL Urine Ketones (Negative) mg/dL Urine Blood (Negative) Urine Nitrite (Negative) Urine Bilirubin (Negative) Urine Urobilinogen (Normal) mg/dL Ur Leukocyte Esterase (Negative) Urine Microscopic RBC (0-3) per hpf Urine Microscopic WBC (0-3) per hpf Ur Squamous Epith Cells (None-Few) per lpf Urine Bacteria (None-Few) per hpf Hyaline Casts (None-Few) per lpf Salicylates (15.0-30.0) mg/dL Urine Opiates Screen Positive H (Bhprgs=626) ng/mL Acetaminophen (10-20) mcg/mL Ur Barbiturates Screen Negative (Uxyvtc=721) ng/mL Ur Phencyclidine Scrn Negative (Cutoff=25) ng/mL Ur Amphetamines Screen Negative (Bhauob=2739) ng/mL U Benzodiazepines Scrn Negative (Cgmzvl=249) ng/mL Urine Cocaine Screen Negative (Cutoff= 300) ng/mL U Marijuana (THC) Screen Positive H (Cutoff = 50) ng/mL Ur Drug Screen Interp See Below Ethyl Alcohol (Less than 10) mg/dL Psychiatric Medical Clearance - Medical Clearance Checklist Medical History: No Social History Section defined Current Vitals: Last Vital Signs Temp 98.3 F 12/23/17 13:53 Pulse 112 12/23/17 13:53 Resp 20 12/23/17 13:53 BP 126/92 12/23/17 13:53 Pulse Ox 96 12/23/17 13:53 Psychiatric Lab Panel: Drug Levels and Toxicity 12/23/17 12/23/17 14:24 14:35 Urine Opiates Screen Positive H Acetaminophen < 10 L Ur Barbiturates Screen Negative Ur Phencyclidine Scrn Negative Ur Amphetamines Screen Negative U Benzodiazepines Scrn Negative Urine Cocaine Screen Negative U Marijuana (THC) Screen Positive H Ethyl Alcohol < 10 Abnormal Labs: Abnormal lab results Potassium 3.4 mEq/L (3.5-5.1) L 12/23/17 14:24 Chloride 113 mEq/L (98-107) H 12/23/17 14:24 Carbon Dioxide 19 mEq/L (23-29) L 12/23/17 14:24 Glucose 110 mg/dL (70-105) H 12/23/17 14:24 Urine Clarity Cloudy (Clear) A 12/23/17 14:35 Ur Specific [place] 1.028 (1.010-1.025) H 12/23/17 14:35 Urine Ketones Trace mg/dL (Negative) H 12/23/17 14:35 Urine Bilirubin Small (Negative) H 12/23/17 14:35 Ur Leukocyte Esterase Trace (Negative) H 12/23/17 14:35 Urine Microscopic RBC 15-30 per hpf (0-3) H 12/23/17 14:35 Urine Microscopic WBC 5-15 per hpf (0-3) H 12/23/17 14:35 Ur Squamous Epith Cells Many per lpf (None-Few) H 12/23/17 14:35 Hyaline Casts Moderate per lpf (None-Few) H 12/23/17 14:35 Salicylates < 2.5 mg/dL (15.0-30.0) L 12/23/17 14:24 Urine Opiates Screen Positive ng/mL (Tnpihz=994) H 12/23/17 14:35 Acetaminophen < 10 mcg/mL (10-20) L 12/23/17 14:24 U Marijuana (THC) Screen Positive ng/mL (Cutoff = 50) H 12/23/17 14:35 Attestation Statement - Attestation Attestation: Patient was seen with resident physician. I reviewed the history, physical, assessment and plan, and agree with the findings. I also personally evaluated this patient and had [id number] time with this patient. 27-year-old female with psychiatric history presents emergency Department with suicidal ideation. Patient states that she has been feeling worse the last couple weeks but really bad for the last 3 days. She said she was looking for her 's gun in her house to harm herself but she could not find it. Ultimately this prompted her visit to the ED for evaluation and treatment. She denies other symptoms. Review of systems as above remainder negative. Physical exam vital signs are stable. ENT is unremarkable. Heart regular rhythm and rate. Lungs clear. Abdomen soft nontender. Extremities unremarkable. Neurologically intact. Skin no rashes. Psych depressed. ED course laboratory testing and urinalysis was largely unremarkable. Will have one a come evaluate the patient. She will be placed on a nonvoluntary admission status based on her history and physical presenting to us. We do have some concerns for both the safety of her and the safety of others that may be around her based on her history. Hemodynamically she was medically cleared for psychiatric admission. After one a evaluation they felt the patient required hospitalization as an inpatient here today in [facility]. I agree with resident physician assessment and plan.
[2017-12-23 14:46] LABS: Basophils % 0.5 %; Eosinophils # 0.1 K/mcL (0.0-0.6); Eosinophils % 1.6 %; Hematocrit 39.2 % (35.3-44.9); Hemoglobin 12.9 g/dL (11.5-15.4); Immature Granulocytes % 0.2 % (0-4); Lymphocytes # 1.4 K/mcL (0.6-4.6); Lymphocytes % 24.4 %; Mean Corpuscular HGB Conc 32.9 g/dL (31.6-35.5); Mean Corpuscular Hemoglobin 30.1 pg (28.0-33.3); Mean Corpuscular Volume 91.4 fL (83.0-100.0); Mean Platelet Volume 9.9 fL (9.4-12.4); Monocytes # 0.3 K/mcL (0.0-1.3); Platelet Count 216 K/mcL (140-400); Red Blood Count 4.29 M/mcL (3.82-4.97); Red Cell Distribution Width 13.2 % (11.5-14.5); Segmented Neutrophils % 68.3 %
[2017-12-23 14:47] LABS: Bilirubin,Urine Small (Negative); Blood,Urine Negative (Negative); Clarity,Urine Cloudy (Clear); Color,Urine Dark Yellow (Yellow); Glucose,Urine (UA) Normal (Normal); Ketones,Urine Trace mg/dL (Negative); Leukocyte Esterase,Urine Trace (Negative); Nitrite,Urine Negative (Negative); PH,Urine 5.5 pH Units (5.0-8.0); Protein,Urine Trace mg/dL (Neg-Trace); Specific Gravity,Urine 1.028 (1.010-1.025); Urobilinogen,Urine Normal (Normal)
[2017-12-23 14:48] LABS: Bacteria,Urine Few per hpf (None-Few); Hyaline Casts,Urine Moderate per lpf (None-Few); RBC,Urine 15-30 per hpf (0-3); Squamous Epithelial Cell,Urine Many per lpf (None-Few)
[2017-12-23 15:02] LABS: Acetaminophen < 10 mcg/mL (10-20); BUN/Creatinine Ratio 13 (6-26); Blood Urea Nitrogen 8 mg/dL (6-20); Calcium 9.3 mg/dL (8.6-10.3); Carbon Dioxide 19 mEq/L (23-29); Chloride 113 mEq/L (98-107); Ethanol < 10 mg/dL (Less than 10); Glucose 110 mg/dL (70-105); Osmolality,Calculated 289 (280-300); Potassium 3.4 mEq/L (3.5-5.1); Salicylate < 2.5 mg/dL (15.0-30.0); Sodium 140 mEq/L (136-145); eGFR For Non-African Americans > 60 (> 60)
[2017-12-23 15:04] LABS: Amphetamine Screen,Urine Negative ng/mL (Cutoff=1000); Barbiturate Screen,Urine Negative ng/mL (Cutoff=200); Benzodiazepines Screen,Urine Negative ng/mL (Cutoff=200); Cannabinoid Screen,Urine Positive ng/mL (Cutoff = 50); Cocaine Screen,Urine Negative ng/mL (Cutoff= 300); Opiate Screen,Urine Positive ng/mL (Cutoff=300); Phencyclidine Screen,Urine Negative ng/mL (Cutoff=25)
[2017-12-23 15:15] LABS: Thyroid Stimulating Hormone 1.882 mcIU/mL (0.340-5.600)
[2017-12-23] MEDS ORDERED: Acetaminophen 325 MG TABLET PO ONE (16:14)
[2017-12-23] MEDS ORDERED: Nicotine 7 MG PATCH.TD24 TD ONE (20:01)
[2017-12-23] MEDS ORDERED: Acetaminophen 325 MG TABLET PO PRN (20:55)
[2017-12-23] MEDS ORDERED: *HR* LORazepam 2 MG/ML VIAL IM PRN (20:55)
[2017-12-23] MEDS ORDERED: hydrOXYzine pamoate 25 MG CAPSULE PO PRN (20:55)
[2017-12-23] MEDS ORDERED: MOM Conc 10 ML UD.LIQ PO PRN (20:55)
[2017-12-23] MEDS ORDERED: traZODone 50 MG TABLET PO PRN (20:55)
[2017-12-23] MEDS ORDERED: *HR* LORazepam 1 MG TABLET PO PRN (20:55)
[2017-12-23] MEDS ORDERED: Haloperidol Lactate 5 MG/ML VIAL IM PRN (20:55)
[2017-12-23] MEDS ORDERED: Mag Hydrox/Al Hydrox/Simeth 30 ML UDC PO PRN (20:55)
[2017-12-23] MEDS ORDERED: Topiramate 25 MG TABLET PO SCH (21:00)
[2017-12-23 22:13] VITALS: BP 118/80
--- NOTE | 2017-12-23 23:27 | Event Note ---
Date of Encounter: 12/23/17 Time of Encounter: 23:00 Rapid response was called at 23:00 because the patient was found laying on the floor in her room on 1A after the nurse heard a thump. The patient was laying on her side, had her eyes open, was not speaking, and was looking around. The patient arrived on the inpatient psych floor within the past hour and was given Tylenol, Topamax, and Vistaril. Nurse reports this is an acute change from her previous mental status a few minutes ago when performing her admission assessment. The patient was transferred to the bed and was alert and oriented to self and her surroundings. She did not appear to be in a post-ictal state, had no tongue trauma, no urinary incontinence, or inability to move extremities on command. Of note, patient has a knot on her forehead with a small non- bleeding abrasion after she previously intentionally hit her head against a door post to commit self harm. Patient is currently pink slipped for suicidal ideation. Stat CT head without contrast was ordered. Plan was discussed with and agreed upon with Attending, Dr. Maldonado. ITS Impressions Head CT 12/23/17 23:03 IMPRESSION: No acute intracranial abnormality. D/ / Arya Palacio / Arya Palacio Interpreting Provider: Arya Palacio
== END 2017-12-24 00:54 | disposition other institution (70) ==
LOC: EMEROO 13:37 → INTOOBSV 17:49 → 1ANU 17:49
PROVIDERS: ADMIT Psychiatry & Neurology Psychiatry; ATTEND Psychiatry & Neurology Psychiatry

== ENCOUNTER 2017-12-23 23:39 | Observation (INO) ==
[2017-12-24] MEDS ORDERED: Naloxone 0.4 MG/ML INJ IVP PRN (01:50)
--- NOTE | 2017-12-24 01:59 | Internal Med History&Physical ---
Date of Encounter: 12/24/17 Time of Encounter: 01:30 Internal Medicine - H&P: HPI Chief complaint: Seizure-like activity Admitted From: Home Plans for Post Hospital Care: Home History of present illness: Ms. Dale is a 27 year old female Rapid response called to the patient's room on the one-day psych unit after being admitted today for suicidal ideations. She was found on the floor of her room by the nurse after she heard a thump. Patient is lying on her side, had her eyes open was not speaking and was looking around. The nurse had recently just seen the patient, and this was a different presentation than what she had seen earlier. During the rapid response blood glucose levels were within normal limits patient was oriented to self and place but not to time. She seemed confused and unable to answer questions about what had happened to her. Stat CT was ordered to assess for signs of intracranial injury. She was then transferred to the medical floor for further evaluation. Past Med Surg Social Fam HX - Past Medical History Medical history: migraine, seizures Additional medical history: herpes type 1 Psychiatric history: anxiety, bipolar, depression, panic disorder, prior suicide attempt, previous psychiatric hospitalization - Past Surgical History Surgical History: cholecystectomy Additional surgical history: lap band. R ankle ORIF. tubal ligation - Social History Smoking Status: Current every day smoker Packs per day: 1/3 Smokeless Tobacco Status: No Alcohol use: none Drug use: marijuana - Family History Father Living Status: Still Living Hx Family Endocrine Disorder: Yes (diabetes) Internal Medicine - H&P: Meds Topiramate [Topamax] 50 mg PO BID 04/24/16 [History] Escitalopram [Lexapro] 20 mg PO DAILY 12/24/17 [History] 3 Allergy/AdvReac Type Severity Reaction Status Date / Time Penicillins Allergy Hives Verified 12/23/17 13:59 All Systems PM: A 10-system review of systems was performed and is negative for pertinent findings except as documented above in the HPI. - Constitutional Vitals: Temp Pulse Resp BP Pulse Ox 98.5 F 47 14 98/61 99 12/24/17 01:30 12/24/17 01:30 12/24/17 01:30 12/24/17 01:30 12/24/17 01:30 General appearance: Present: cooperative, A&O X 3, pleasant, no acute distress, answers questions appropriately - Head Additional comments: linear abrasion in the center of the forehead from previous injury. Tender to palpation with slight swelling and hematoma - Eye Eye exam: Present: EOMI, normal appearance - Neck Neck exam general surgery: Present: full ROM - Respiratory Respiratory exam: Present: CTAB. Absent: chest wall tenderness, decreased breath sounds, respiratory distress, wheezes - Cardiovascular Cardiovascular exam: Present: RRR. Absent: diastolic murmur, systolic murmur - GI/Abdominal GI/Abdominal exam: Present: normal bowel sounds, soft. Absent: tenderness - Extremities Exam Extremities exam: Present: normal inspection, warm, radial pulses palpable and symmetrical. Absent: calf tenderness, pedal edema, tenderness - Neurological Exam Neurological exam: Present: oriented X3, no focal deficits, strengths equal and symetr throughout. Absent: motor sensory deficit, facial droop, speech deficit - Skin Skin exam: Present: dry, normal color, warm Internal Med - H&P Results - Labs CBC & Chem 7: 12/24/17 05:21 12/24/17 05:21 - Assessment and plan (1) Seizure-like activity Current Visit: Yes Status: Acute Assessment and plan: CT head negative for intracranial abnormality. Patient apparently has history of seizures in the past and takes Topamax for 50 mg twice a day. She is able to at this time tell us that she had not been taking this medication for the last few days. She says that she has a history of seizures in the past but has been told that they are nonepileptic. She had received a dose of her Topamax prior to the event on 1A. Consider neurology consultation Consider EEG in the morning Can continue home meds as prescribed if agreeable by neurology. (2) Suicidal ideation Current Visit: No Status: Acute Assessment and plan: Patient initially admitted for suicidal ideation directly from the emergency room Consider psych consult once medically cleared for her seizure like activity. (3) Fall Current Visit: Yes Status: Acute Assessment and plan: Patient fell on 18, unwitnessed. Did have a previous head injury from before she was seen in the emergency room. CT head showed no acute intracranial abnormality Qualifiers: Qualified Code(s): W19.XXXA - Unspecified fall, initial encounter - Time Spent With Patient Total time spent is greater than 50% in coordination of care (as documented) at patient's floor/unit and/or counseling patient: Greater than 35 minutes
[2017-12-24 06:15] LABS: Hematocrit 36.3 % (35.3-44.9); Hemoglobin 12.1 g/dL (11.5-15.4); Mean Corpuscular HGB Conc 33.3 g/dL (31.6-35.5); Mean Corpuscular Hemoglobin 30.6 pg (28.0-33.3); Mean Corpuscular Volume 91.9 fL (83.0-100.0); Mean Platelet Volume 10.6 fL (9.4-12.4); Platelet Count 199 K/mcL (140-400); Red Blood Count 3.95 M/mcL (3.82-4.97); Red Cell Distribution Width 13.1 % (11.5-14.5)
[2017-12-24 06:37] LABS: BUN/Creatinine Ratio 16 (6-26); Blood Urea Nitrogen 7 mg/dL (6-20); Calcium 8.9 mg/dL (8.6-10.3); Carbon Dioxide 22 mEq/L (23-29); Chloride 113 mEq/L (98-107); Glucose 93 mg/dL (70-105); Osmolality,Calculated 288 (280-300); Potassium 3.3 mEq/L (3.5-5.1); Sodium 140 mEq/L (136-145); eGFR For Non-African Americans > 60 (> 60)
[2017-12-24] MEDS ORDERED: Potassium Chloride Elixir 20 MEQ/15 ML UDC PO ONE (09:03)
[2017-12-24] MEDS ORDERED: *HR* LORazepam 2 MG/ML VIAL ONE (09:20)
[2017-12-24] MEDS ORDERED: *HR* LORazepam 2 MG/ML VIAL IVP ONE (09:29)
--- NOTE | 2017-12-24 10:02 | Event Note ---
Date of Encounter: 12/24/17 Time of Encounter: 08:50 Overnight events noted. 27-year-old female with history of's nonepileptic seizure (following Dr. Terrell) was admitted to the psych floor with suicide ideation. Was brought to the medical floor after an episode of questionable seizure. Apparently the patient walked up to the nurse and the psych floor and fell in front of her followed by few episodes of jerky movements of her limbs. When I saw her this AM, she appears very distressed that ppl think she is making up the story. I reassured her that we are investigating the cause of the event and would resume her topiramate first and having Dr. Terrell evaluate her. 5 minutes later, she had an episodes of unresponsiveness and foam in her mouth for which rapid response team was called. Aborted spontaneously 30-45secs after and was confused/not responding to questions thereafter. Received 4mg of ativan during the episode and no further convulsions seen. Informed Dr. Terrell of the event who will evaluate the patient later. Once cleared by neurology, she can be moved back to psych floor.
[2017-12-24] MEDS ORDERED: Acetaminophen 325 MG TABLET PO PRN ×2 (12:18→12:20)
--- NOTE | 2017-12-24 13:26 | Neurology - Consult Note ---
Date of Encounter: 12/24/17 Time of Encounter: 12:23 Assessment and Plan (1) Seizure-like activity Current Visit: Yes Status: Acute This patient will seem to have a severe depression and anxiety untreated a lot of psychosocial issues admitted with suicidal ideation and noted to have seizure type of activity. Patient she did have a these as spells off and on for quite some time, particularly worse during the stress time and then resolving spontaneously had a complete workup in the past including imaging studies as well as EEG all has been negative. There is significant noncompliant component inpatient history and she stopped taking medication on her own. At the same time she has not seek any psychiatric help for long time despite being depressed and anxious. Regardless even the activity she had earlier though sounds are look like a seizure but I really doubt that her seizures are true epileptic seizures as she already had a complete workup in the past and all has been negative. She had been on Topamax in the past for headache prevention she may continue on it. Would not recommending starting any new anticonvulsive medication at this time. She would need immediate psychiatric help and need medication for her severe anxiety depression and need to be treated. At the same time she would also need follow-up for the psychiatrist as an outpatient. At the moment she is stable and could be discharged back to the psychiatry unit, for much needed psychiatric help, she is not able to get it as outpt (2) Major depressive disorder, recurrent Current Visit: No Status: Chronic Qualifiers: Active/Remission status: currently active Major depression episode severity : severe Psychotic features: without psychotic features Qualified Code(s): F33.2 - Major depressive disorder, recurrent severe without psychotic features History of Present Illness HPI: Ms. Dale is a 27 year old female patient with a history of nonconvulsive seizures known to me from previous office visits for the past several years. Most recently she was seen about 2 weeks ago for chronic headaches seizure type of activity as well as for severe anxiety and depression. At that time it was suggested that she should seek help for anxiety as she continued to be very depressed and is been under a lot of psychosocial stressors due to her family situation According to records she was admitted earlier to the psych unit for suicidal ideation And then later on she was found on the floor of her room by the nurse after she heard a thump. Patient is lying on her side, had her eyes open was not speaking and was looking around. August response was called in, During the rapid response blood glucose levels were within normal limits patient was oriented to self and place but not to time. She seemed confused and unable to answer questions about what had happened to her. Stat CT was ordered to assess for signs of intracranial injury. She was then transferred to the medical floor for further evaluation. CT of the head was negative not she is on the medical floor sleeping in the room alert awake and oriented able to follow conversation moving all 4 extremities equally Past Med Surg Social Fam HX - Past Medical History Medical history: migraine, seizures Additional medical history: herpes type 1 Psychiatric history: anxiety, bipolar, depression, panic disorder, prior suicide attempt, previous psychiatric hospitalization - Past Surgical History Surgical History: cholecystectomy Additional surgical history: lap band. R ankle ORIF. tubal ligation - Social History Smoking Status: Current every day smoker Packs per day: 05/30 Smokeless Tobacco Status: No Alcohol use: none Drug use: marijuana - Family History Father Living Status: Still Living Hx Family Endocrine Disorder: Yes (diabetes) Medications and Allergies Topiramate [Topamax] 50 mg PO BID 04/24/16 [History] Escitalopram [Lexapro] 20 mg PO DAILY 12/24/17 [History] 3 Allergy/AdvReac Type Severity Reaction Status Date / Time Penicillins Allergy Hives Verified 12/23/17 13:59 All Systems: The remainder of the systems were reviewed and are negative Physical Examination - Vital Signs Vital Signs: Initial Vital Signs Temp Pulse Resp BP Pulse Ox 98.5 F 47 14 98/61 99 12/24/17 01:30 12/24/17 01:30 12/24/17 01:30 12/24/17 01:30 12/24/17 01:30 - Constitutional General appearance: comfortable, other (Very flat and depressed affect) - Neurologic Sensorimotor examination: intact Detailed motor examination: grossly full strength in all extremities Motor examination - right side: 5/5: deltoids, biceps, triceps, wrist flexion, wrist extension, license clerk, hip flexors, tibialis Anterior, quadriceps, toe extension (EHL), plantarflexion Motor examination - left side: 5/5: deltoids, biceps, triceps, wrist flexion, wrist extension, hip flexors, license clerk, quadriceps, tibialis Anterior, toe extension (EHL), plantarflexion Detailed sensory examination: intact Reflex and gait examination: intact Reflexes: Biceps: 1+, Triceps: 1+, Brachioradialis: 1+, Patella: 1+, Achilles: 1 + Mental Status Examination: awake, alert, oriented to person, follows commands appropriately, answers questions appropriately, follows simple commands, localizes noxious stimulation Cranial nerve examination: PERRL, EOMI, visual baltazar intact, no facial asymmetry is present Cerebellar examination: no dysmetria Results - Laboratory Findings CBC and BMP: 12/24/17 05:21 12/24/17 05:21 Abnormal lab findings: Abnormal lab results Potassium 3.3 mEq/L (3.5-5.1) L 12/24/17 05:21 Chloride 113 mEq/L (98-107) H 12/24/17 05:21 Carbon Dioxide 22 mEq/L (23-29) L 12/24/17 05:21 Creatinine 0.45 mg/dL (0.60-1.20) L 12/24/17 05:21 Consult Discharge Plan - Plan Referrals: Micaela Rae [Registered Pharmacist] - 01/02/18 11:00 am NONE,PCP [Primary Care Provider] -
--- NOTE | 2017-12-24 15:40 | Discharge Summary ---
- NOTES TO OUTPATIENT PROVIDER Notes to Outpatient Provider: Patient with non-epileptic seizures. Was concerned for 2 episodes during her psych stay which was deemed non-epileptic by neuro. No antiepileptic meds recommended. Orders not resulted at time of discharge: Pending orders 12/25/17 04:00 Basic Metabolic Panel AM 0400 Date of Encounter: 12/24/17 Time of Encounter: 08:05 - Discharge Diagnosis (1) Seizure-like activity Priority: Primary Status: Acute (2) Suicidal ideation Priority: Secondary Status: Acute (3) Hypokalemia Priority: Secondary Status: Inactive Hospital course: Ms. Dale is a 27 year old female with known hx of non-epileptic seizure and depression, was initially admitted to for suicidal ideation. Rapid response team was called overnight for seizure-like activities and brought to the medical floor for further management. In the morning, she again had similar episode for which she was given IV ativan. Dr. Terrell evaluated the patient afterward, who has known the patient well for the last 3 years, and deemed that her episodes are non-epileptic particularly worse during the stress time and resolve spontaneously. He recommended to continue topamax and asked for psychiatric stabilization which seemed to be the main cause of these episodes. Discharge discussed with: nurse - Time Spent with Patient Total time spent providing and/or coordinating discharge services: Greater than 30 minutes - Discharge Medications Home Medications: Topiramate [Topamax] 50 mg PO BID 04/24/16 [History] Escitalopram [Lexapro] 20 mg PO DAILY 12/24/17 [History] Allergies/Adverse Reactions: 3 Allergy/AdvReac Type Severity Reaction Status Date / Time Penicillins Allergy Hives Verified 12/23/17 13:59 Date of admission: 12/24/17 00:15 Primary care physician: PCP NONE Consults: 12/24/17 01:35 Consult to [employer] [CONS] Routine Reason for SW Consult: Discharge needs, resources 12/24/17 01:52 Consult to Psychiatry [CONS] Routine Consulting Provider: Psychiatry Francie Reason consult: [place] slip on chart [place] Slip initiated date and time: 12/23/17 14:30 Call Completed: No 12/24/17 08:17 Consult to Neurology [CONS] Routine Consulting Provider: Neurology [facility] Reason for Consult: Seizure-like activity Call Completed: No - Constitutional Vitals: Temp Pulse Resp BP Pulse Ox 98.6 F 54 14 107/61 99 12/24/17 05:00 12/24/17 09:00 12/24/17 09:00 12/24/17 09:00 12/24/17 09:00 General appearance: Present: cooperative, A&O X 3, pleasant, no acute distress, answers questions appropriately Exam: General: Alert and oriented, not in distress HEENT:EOM, pupils equal, round, and reactive. Cardiovascular:Normal S1 & S2, no murmurs or gallops. No JVD. Pulse regular. Lungs:Normal breath sounds, no wheezes or crackles. Abdomen:Soft, non-tender, no rigidity. Extremities:No deformity, no edema or tenderness, no joint swelling. Neurological: CN II-XII intact, no focal neuro deficits Skin:Normal color, no rash, no lesions. Pulses:Carotid and radial pulses normal +2. Rest of the physical exam is non-contributory - Patient Status Disposition: Transfer Psychiatric Hosp Condition: Good Functional capacity at discharge: independent ambulation Overall status at discharge: patient is back to baseline - Discharge Instructions Follow Up With: Micaela Rae [Registered Pharmacist] - 01/02/18 11:00 am NONE,PCP [Primary Care Provider] - - Diet and Activity Activity: resume usual activities as tolerated Diet: regular diet
[2017-12-24] MEDS: Baclofen 10 MG TABLET PO SCH (20:22)
[2017-12-24] MEDS: Topiramate 25 MG TABLET PO SCH (20:22)
[2017-12-24] MEDS ORDERED: Nicotine 7 MG PATCH.TD24 TD SCH (21:00)
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
[2017-12-25 06:32] LABS: BUN/Creatinine Ratio 19 (6-26); Blood Urea Nitrogen 10 mg/dL (6-20); Calcium 9.1 mg/dL (8.6-10.3); Carbon Dioxide 19 mEq/L (23-29); Chloride 113 mEq/L (98-107); Glucose 88 mg/dL (70-105); Osmolality,Calculated 286 (280-300); Potassium 3.4 mEq/L (3.5-5.1); Sodium 139 mEq/L (136-145); eGFR For Non-African Americans > 60 (> 60)
[2017-12-25] MEDS: Topiramate 25 MG TABLET PO SCH (08:13)
[2017-12-25] MEDS: Baclofen 10 MG TABLET PO SCH (08:13)
--- NOTE | 2017-12-25 08:52 | Neurology Progress Note ---
Date of Encounter: 12/25/17 Time of Encounter: 07:30 Assessment and Plan (1) Seizure-like activity Current Visit: Yes Status: Acute This patient who had a history of flow multiple seizure-like activity has an extensive workup in the past. I have been following her for the last 3 years significant noncompliant status. Severe anxiety and depression has been referred to psychiatry multiple time, but did not follow-up. At the same time she was started on Topamax had discontinued several times because of headaches and questionable seizures. She is already on Topamax even if she has a true epileptic seizures it should cover that part I do not think that she would require any other seizure medication at this time. As she had EEGs and imaging studies do not think that would add anything to the diagnosis I strongly suspect her seizures are related to underlying anxiety depression, From neurology standpoint she is a stable could be transferred back to the psych unit If the concern of seizures as high from psychiatric standpoint she should be evaluated at a tertiary care center at [facility] for long-term video EEG monitoring (2) Major depressive disorder, recurrent Current Visit: No Status: Chronic Qualifiers: Active/Remission status: currently active Major depression episode severity : severe Psychotic features: without psychotic features Qualified Code(s): F33.2 - Major depressive disorder, recurrent severe without psychotic features Subjective Interval history: Currently stable did not have any further seizures Objective - Constitutional Vitals: Temp Pulse Resp BP Pulse Ox 98.7 F 65 16 111/75 97 12/25/17 07:45 12/25/17 07:45 12/25/17 07:45 12/25/17 07:45 12/25/17 07:45 - Neurological Exam Sensorimotor examination: Present: intact Motor Examination: Present: grossly full strength in all extremities Motor examination - left side: 5/5: deltoids, biceps, triceps, wrist flexion, wrist extension, hip flexors, conference director, quadriceps, tibialis Anterior, toe extension (EHL), plantarflexion Sensation intact: Present: intact Reflex and gait examination: intact Mental Status Examination: Present: awake, alert, oriented to person, follows commands appropriately, answers questions appropriately, follows simple commands , localizes noxious stimulation Cranial nerve examination: Present: PERRL, EOMI, visual baltazar intact, no facial asymmetry is present Cerebellar examination: Present: no dysmetria Results - Laboratory Findings CBC and BMP: 12/24/17 05:21 12/25/17 05:17 Abnormal lab findings: Abnormal lab results Potassium 3.4 mEq/L (3.5-5.1) L 12/25/17 05:17 Chloride 113 mEq/L (98-107) H 12/25/17 05:17 Carbon Dioxide 19 mEq/L (23-29) L 12/25/17 05:17 Creatinine 0.53 mg/dL (0.60-1.20) L 12/25/17 05:17 Consult Discharge Plan - Plan Referrals: Micaela Rae [Registered Pharmacist] - 01/02/18 11:00 am NONE,PCP [Primary Care Provider] -
[2017-12-25 11:05] VITALS: BP 120/82
== END 2017-12-25 11:19 ==
LOC: 3BNU → SUATTDRO 12-24 00:15
PROVIDERS: ADMIT Family Medicine; ATTEND Internal Medicine

== ENCOUNTER 2017-12-25 11:06 | Inpatient (IN) ==
[2017-12-25] MEDS ORDERED: Acetaminophen 325 MG TABLET PO PRN (13:26)
[2017-12-25] MEDS ORDERED: *HR* LORazepam 1 MG TABLET PO PRN (13:26)
[2017-12-25] MEDS ORDERED: Mag Hydrox/Al Hydrox/Simeth 30 ML UDC PO PRN (13:26)
[2017-12-25] MEDS ORDERED: Haloperidol Lactate 5 MG/ML VIAL IM PRN (13:26)
[2017-12-25] MEDS ORDERED: MOM Conc 10 ML UD.LIQ PO PRN (13:26)
[2017-12-25] MEDS ORDERED: *HR* LORazepam 2 MG/ML VIAL IM PRN (13:26)
[2017-12-25] MEDS: hydrOXYzine pamoate 25 MG CAPSULE PO PRN ×3 (14:14→20:41)
--- NOTE | 2017-12-25 14:57 | Internal Med Progress Note ---
Hospitalist Progress Note - Encounter Date of Encounter: 12/25/17 Time of Encounter: 09:35 - Subjective Interval History: Patient sitting up in bed. She was seen and assessed at 9:35 AM. Sitter remains at bedside. Patient denies headache, nausea, vomiting, dizziness, vision changes. She denies chest pain or shortness of breath, no abdominal pain. States she states that she is feeling better and is ready to be discharged to mental health unit. - Exam Vitals: Temp Pulse Resp BP 98.1 F 68 20 122/80 12/25/17 11:20 12/25/17 11:20 12/25/17 11:20 12/25/17 11:20 Exam: Patient skin is pink warm and dry without rashes or lesions. Patient's affect is flat, she does make good eye contact. She is alert, awake, oriented, answers questions appropriately. Her head is normocephalic, no nystagmus noted , EOMI. Patient's speech is clear, no facial droop, no pronator drift, strength are equal bilaterally. S1 and S2 is heard without tachycardia, bradycardia, gallops, clicks, murmurs. Lungs are clear and all lung baltazar anterior-posterior. Abdomen soft and nontender to palpation with bowel sounds present. Patient has no peripheral edema, radial and pedal pulses are strong and equal bilaterally, +3. DVT Prophylaxis: Patient is ambulatory. - Time Spent with Patient Total time spent is greater than 50% in coordination of care (as documented) at patient's floor/unit and/or counseling patient: less than 15 minutes Plan of Care Discussed with: nurse - VTE Reasons for not Prescribing Prophylaxis: Treatment not Indicated - Low risk for VTE
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
[2017-12-25] MEDS: traZODone 50 MG TABLET PO PRN (20:41)
[2017-12-25] MEDS: Baclofen 10 MG TABLET PO SCH (20:42)
[2017-12-25] MEDS: Topiramate 25 MG TABLET PO SCH (20:43)
[2017-12-26] MEDS: Topiramate 25 MG TABLET PO SCH (09:34)
[2017-12-26] MEDS: Baclofen 10 MG TABLET PO SCH ×3 (09:34→20:38)
[2017-12-26] MEDS: Nicotine 7 MG PATCH.TD24 TD SCH (09:35)
[2017-12-26] MEDS: hydrOXYzine pamoate 25 MG CAPSULE PO PRN ×2 (10:12→20:38)
--- NOTE | 2017-12-26 14:52 | Psychiatry Progress Note ---
Date of Encounter: 12/26/17 Time of Encounter: 14:25 Subjective Interval history: The patient is a 27-year-old white female. Chief complaint I still think that I have seizures I did not cause this to happen. I do not have a substance abuse problem I kept the Percocet in my sock, i took it one. 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 When she woke up a CAT scan or she was very upset and indicated that she. Was worried that she might lose. She has had a good working relationship with her neurologist. The patient says she does not have seizures that often and feels that she also only had 5 or 6 in her life.. History of present illness the patient now presents with a variety of concerns. She would like to increase Lexapro to 20 mg per day and she would like to increase topiramate 100 mg twice a day. She feels that this will help her seizure and her anxiety she has been able to tolerate baclofen. The patient has asked that she continue on her current plan of living in the house in spite of difficult circumstances and negative expressed emotion. She feels that this would allow her the best opportunity to stay with her kids. I reviewed the patient's discharge follow-up appointments and talk to her about the possibility of sending a letter to Dr. Terrell her neurologist. The patient is aware of the possible side effects of Lexapro and topiramate in the past she tolerated higher doses of topiramate but did lose some weight. Review of Systems Psychiatric: Reports: depression, anxiety, suicidal ideation, homicidal ideation , difficulty concentrating, hopelessness, irritability Results - Vital Signs Vital Signs: Temp Pulse Resp BP 98.3 F 68 18 91/74 12/26/17 09:00 12/26/17 09:00 12/26/17 09:00 12/26/17 09:00 Assessment and Plan (1) Borderline personality disorder Current visit: Yes Status: Acute Risks, benefits, side effects, alternatives discussed w/pt: Yes Patient agreeable to treatment: Yes (2) Major depressive disorder, recurrent severe without psychotic features Current visit: Yes Status: Acute Risks, benefits, side effects, alternatives discussed w/pt: Yes Patient agreeable to treatment: Yes (3) Uncomplicated opioid dependence Current visit: Yes Status: Chronic Risks, benefits, side effects, alternatives discussed w/pt: Yes Patient agreeable to treatment: Yes (4) Conversion disorder with seizures or convulsions Current visit: No Status: Acute Risks, benefits, side effects, alternatives discussed w/pt: Yes Patient agreeable to treatment: Yes Consult Discharge Plan - Plan Referrals: [facility] [Outside] - 01/02/18 11:00 am (The above appointment is with Micaela Rae for mental health counseling. Please bring photo ID and insurance card. Call 24 hours in advance for cancellations.) Mariana Fuentes MD [Partnered Physician] - 04/12/18 10:40 am (The above appointment is with Dr. Fuentes for psychiatric assessment and medications. Please bring photo ID and insurance card. Call 24 hours in advance for cancellations.) Mahad Terrell MD [Partnered Physician] - 01/02/18 8:30 am (The above appointment is with Dr. Terrell, a neurologist, for primary care and medication management. Please bring photo ID and insurance card. Please call 24 hours in advance for cancellations.) Psychiatry Exam - Constitutional Vitals: Temp Pulse Resp BP 98.3 F 68 18 91/74 12/26/17 09:00 12/26/17 09:00 12/26/17 09:00 12/26/17 09:00 General appearance: age & developmentally appropriate, well-groomed, well- nourished - Musculoskeletal Gait: normal Station: relaxed Strength & Tone: normal for patient - Psychiatric Patient Orientation: Yes Person, Yes Time, Yes Place Level of alertness: Alert Behavior: calm, cooperative Psychomotor activity: Normal Eye Contact: Maintains Eye Contact Mood Description: Depressed, Anxious Affect description: congruent with mood, full range, dysphoric Speech Volume: Normal Speech pattern: normal rate, normal rhythm, normal tone, fluent, spontaneous Language & Vocabulary: consistent with education Thought Process: Linear, Goal Oriented Thought Content: No Suicidal ideation, No Homicidal ideation, No Overt delusions Perceptual Disturbances: No Auditory hallucinations, No Visual hallucinations Attention Span Ability: Capable of Focused Attention Memory Description: Grossly Intact Patient Reliability: Reliable Historian Fund of knowledge: Yes abstraction ability, Yes aware of current events Intelligence Estimate: Average Judgment: Limited Insight: Minimal
--- NOTE | 2017-12-26 16:02 | Internal Med Progress Note ---
Hospitalist Progress Note - Encounter Date of Encounter: 12/26/17 Time of Encounter: 15:50 - Subjective Interval History: No acute events overnight or in morning. Patient denies any seizure-like activity. - Exam Vitals: Temp Pulse Resp BP 98.3 F 68 18 91/74 12/26/17 09:00 12/26/17 09:00 12/26/17 09:00 12/26/17 09:00 Exam: Gen: NAD, AAOx3 CVS: RRR Lungs: CTAB Ext: No edema, no cyanosis Neuro: no focal deficits Skin: warm, dry - Assessment and Plan (1) Conversion disorder with seizures or convulsions Current Visit: No Status: Acute Assessment and Plan: No acute issues. No episodes. Discussed with Neurology. No further workup necessary. (2) Major depressive disorder, recurrent severe without psychotic features Current Visit: Yes Status: Acute Assessment and Plan: Management per primary. (3) Benzodiazepine abuse Current Visit: No Status: Acute (4) Polysubstance (excluding opioids) dependence Current Visit: No Status: Acute (5) Seizure-like activity Current Visit: No Status: Acute - Time Spent with Patient Total time spent is greater than 50% in coordination of care (as documented) at patient's floor/unit and/or counseling patient: - VTE Reasons for not Prescribing Prophylaxis: Treatment not Indicated - Low risk for VTE Consult Discharge Plan - Plan Referrals: [facility] [Outside] - 01/02/18 11:00 am (The above appointment is with Micaela Rae for mental health counseling. Please bring photo ID and insurance card. Call 24 hours in advance for cancellations.) Mariana Fuentes MD [Partnered Physician] - 04/12/18 10:40 am (The above appointment is with Dr. Fuentes for psychiatric assessment and medications. Please bring photo ID and insurance card. Call 24 hours in advance for cancellations.) Mahad Terrell MD [Partnered Physician] - 01/02/18 8:30 am (The above appointment is with Dr. Terrell, a neurologist, for primary care and medication management. Please bring photo ID and insurance card. Please call 24 hours in advance for cancellations.)
[2017-12-26] MEDS: Topiramate 100 MG TABLET PO SCH (20:38)
[2017-12-26] MEDS: traZODone 50 MG TABLET PO PRN (20:38)
[2017-12-27] MEDS: hydrOXYzine pamoate 25 MG CAPSULE PO PRN (07:33)
[2017-12-27] MEDS: Baclofen 10 MG TABLET PO SCH (09:09)
[2017-12-27] MEDS: Topiramate 100 MG TABLET PO SCH (09:10)
[2017-12-27] MEDS: Nicotine 7 MG PATCH.TD24 TD SCH (09:11)
[2017-12-27 11:22] VITALS: BP 118/67
--- NOTE | 2017-12-27 11:34 | Discharge Summary ---
Date of Encounter: 12/27/17 Time of Encounter: 11:15 Diagnosis - Discharge Diagnosis (1) Borderline personality disorder Priority: Secondary Status: Chronic (2) Major depressive disorder, recurrent severe without psychotic features Priority: Primary Status: Acute (3) Uncomplicated opioid dependence Priority: Secondary Status: Chronic (4) Conversion disorder with seizures or convulsions Status: Acute Medications - Discharge Medications Prescriptions: Baclofen [Lioresal] 10 mg PO TID 30 Days #90 tablet Escitalopram [Lexapro] 20 mg PO DAILY 30 Days #30 tablet Topiramate [Topamax] 100 mg PO BID 30 Days #60 tablet traZODone [TraZODone] 100 mg PO HS PRN 30 Days #30 tablet PRN Reason: Insomnia Baclofen [Lioresal] 10 mg PO TID 30 Days #90 tablet 12/27/17 [Rx] Escitalopram [Lexapro] 20 mg PO DAILY 30 Days #30 tablet 12/27/17 [Rx] Topiramate [Topamax] 100 mg PO BID 30 Days #60 tablet 12/27/17 [Rx] traZODone [TraZODone] 100 mg PO HS PRN 30 Days #30 tablet 12/27/17 [Rx] 3 Allergy/AdvReac Type Severity Reaction Status Date / Time Penicillins Allergy Hives Verified 12/23/17 13:59 Provider Date of admission: 12/25/17 11:06 Primary care physician: JAYSHREE NONE Discharging clinician: Chaz Gerardo Psychiatry Exam - Constitutional Vitals: Temp Pulse Resp BP 98.2 F 88 18 118/67 12/27/17 09:00 12/27/17 09:00 12/27/17 09:00 12/27/17 09:00 General appearance: age & developmentally appropriate, well-groomed, well- nourished - Musculoskeletal Gait: normal Station: relaxed Strength & Tone: normal for patient - Psychiatric Patient Orientation: Yes Person, Yes Time, Yes Place Level of alertness: Alert Behavior: calm, cooperative Psychomotor activity: Normal Eye Contact: Maintains Eye Contact Mood Description: Euthymic/stable Affect description: congruent with mood, full range Speech Volume: Normal Speech pattern: normal rate, normal rhythm, normal tone, fluent, spontaneous Language & Vocabulary: consistent with education Thought Process: Linear, Goal Oriented Thought Content: No Suicidal ideation, No Homicidal ideation, No Overt delusions Perceptual Disturbances: No Auditory hallucinations, No Visual hallucinations Attention Span Ability: Capable of Focused Attention Memory Description: Grossly Intact Patient Reliability: Reliable Historian Fund of knowledge: Yes abstraction ability, Yes aware of current events Intelligence Estimate: Average Judgment: Fair Insight: Partial Hospital Course Hospital course: Ms. Dale is a 27 year old female The patient was admitted to one but during the intake process became irritable walked away calling down and later had a witnessed seizure. A rapid response was called. The patient was taken to the medical floor after being on the locked unit for only an hour or 2 of them she was stabilized there and observed to have another seizure and another rapid response was called. The patient reports post ictal amnesia and does not recall any aura or other events. Chief complaint: I still have epilepsy. History of present illness. The patient was admitted to the unit after a consult. During the assessment the patient had some of the features of F 44.5 a conversion disorder with seizures also known as psychogenic nonepileptic form seizure disorder. Abbreviated P KIAH. The patient recognizes that she had multiple stressors but still felt that she may have had epilepsy she is only had 5-6 seizures. Her neurologist had recommended that she remain on topiramate as the only anticonvulsant. He recommended continuing further psychiatric care. The patient was admitted and observed for suicidal ideation. She had rapid mood swings and irritability but did not evidence suicidal behavior or para-suicidal behavior. Nonetheless the patient had a variety of concerns. These include mobility, home life, career. The patient lives in the home environment with difficult interpersonal relationships and high negative expressed emotion. The patient agreed to an increase in Lexapro to 20 mg per day. Baclofen had been added at 10 mg 3 times a day to help with anxiety. The patient was told that topiramate 100 mg twice a day could have side effects but she wished to increase by this amount. This might also help with anxiety and possible seizure activity. The patient was advised to remain abstinent from drugs of abuse and alcohol. She was told that she would need psychotherapy medication management and neurologic follow-up patient was positive and upbeat about going home and recognized some of her challenges. - Time Spent with Patient Total time spent providing and/or coordinating discharge services: Greater than 30 minutes Assessment and Plan - Patient/Caregiver Discharge Instructions Activity: resume usual activities as tolerated Diet: regular diet - Follow up Plan Follow up with: [facility] [Outside] - 01/02/18 11:00 am (The above appointment is with Micaela Rae for mental health counseling. Please bring photo ID and insurance card. Call 24 hours in advance for cancellations.) Mariana Fuentes MD [Partnered Physician] - 04/12/18 10:40 am (The above appointment is with Dr. Fuentes for psychiatric assessment and medications. Please bring photo ID and insurance card. Call 24 hours in advance for cancellations.) Mahad Terrell MD [Partnered Physician] - 01/02/18 8:30 am (The above appointment is with Dr. Terrell, a neurologist, for primary care and medication management. Please bring photo ID and insurance card. Please call 24 hours in advance for cancellations.) Functional capacity at discharge: independent ambulation Overall status at discharge: Stable Disposition: Home, Self-Care Quality - Multiple Antipsychotics Patient discharged on 2 or more antipsychotic medications: No Procedures - Procedures Procedures: Medication Management, Crisis Stabilization, Supportive Therapy, Group Therapy, Psychoeducational Therapy
== END 2017-12-27 13:05 | disposition home or self-care (01) | DRG 883 ==
LOC: 1ANU 11:06
PROVIDERS: ADMIT Psychiatry & Neurology Forensic Psychiatry; ATTEND Psychiatry & Neurology Forensic Psychiatry